=== PATIENT | male | born 1935 | race Caucasian/White ===

== ENCOUNTER 2016-07-26 08:49 | Inpatient (IN) ==
--- NOTE | 2016-07-26 09:35 | Emergency Department Note ---
SOB HPI - General Chief Complaint: Shortness of Breath/Dyspnea Stated Complaint: Shortness of breath Time Seen by Provider: 07/26/16 09:22 Source: patient Mode of arrival: wheelchair Limitations: no limitations - History of Present Illness Patient states even short of breath since yesterday morning, mostly exertional dyspnea, but his states she's also been short of breath at rest. The. When he arrived here, his O2 sats were 88%, he is 100% paced. Denies any chest pain, denies any abdominal pain. He said no nausea, vomiting, diarrhea. No fevers, chills, a slight cough but nonproductive, no ankle swelling. Reported, he does have a history of CABG 10 years ago, 5 vessel bypass. MD Complaint: shortness of breath - Related Data Home Medications Medication Instructions Recorded Confirmed Ascorbic Acid [Vitamin C] 1,000 mg PO DAILY 07/26/16 07/26/16 Aspirin [Adult Low Dose Aspirin EC] 81 mg PO DAILY 07/26/16 07/26/16 Atorvastatin [Lipitor] 40 mg PO HS 07/26/16 07/26/16 Cholecalciferol (Vitamin D3) 1,000 unit PO DAILY 07/26/16 07/26/16 [Vitamin D] EPINEPHrine [Epipen] 0.3 mg IJ PRN PRN 07/26/16 07/26/16 Insulin Glargine,Hum.rec.anlog 30 unit SQ HS 07/26/16 07/26/16 [Lantus Solostar] Multivitamin [Multivitamins] 2 tab PO DAILY 07/26/16 07/26/16 Nitroglycerin [Nitrostat] 0.4 mg SL Q5M PRN 07/26/16 07/26/16 Potassium Gluconate [Potassium] 99 mg PO DAILY 07/26/16 07/26/16 Timolol Maleate 5 mg PO BID 07/26/16 07/26/16 metFORMIN [Glucophage] 1,000 mg PO BIDCC 07/26/16 07/26/16 Allergies Allergy/AdvReac Type Severity Reaction Status Date / Time Sulfa (Sulfonamide Allergy Hives Verified 07/26/16 08:54 Antibiotics) Review of Systems All systems ED: reviewed and negative except as stated. Past Medical History - Past Medical History Source: nursing notes reviewed Medical history: Reports: coronary artery disease, hypertension Surgical history ED: Reports: coronary bypass (CABG) Psychiatric history: Reports: no psych history Family history: Reports: no significant family history - Social History smoking status: Former smoker Alcohol use: Reports: Rarely Drug use: Reports: none Physical Exam 81-year-old male in no immediate distress, respiratory rate slightly increased 20-24. His heart rate is 62 and paced, head, neck exam atraumatic cranium. TMs are normal. His pupils equal and reactive. Neck is supple without JVD. Chest was clear breath sounds, but basilar crackles. Heart regular rhythm and rate. No significant murmurs. Abdomen is generally soft and nontender without masses. Back without CVA pain and skin and extremities otherwise unremarkable. Ankles without edema. Is moving all fours appropriately. He has good distal pulses in all fours. - General Limitations: no limitations General appearance: alert, in no apparent distress - Head Head exam: atraumatic, normocephalic - Eye Eye exam: Present: normal appearance Course Vital Signs Temperature 98.4 F 07/26/16 08:49 Pulse Rate 73 07/26/16 08:49 Respiratory Rate 18 07/26/16 08:49 Blood Pressure 193/88 07/26/16 08:49 Pulse Oximetry (%) 88 L 07/26/16 08:49 Temperature 98.4 F 07/26/16 08:49 Pulse Rate 60 07/26/16 12:31 Respiratory Rate 26 H 07/26/16 12:31 Blood Pressure 185/82 07/26/16 12:31 Pulse Oximetry (%) 100 07/26/16 12:31 Shortness of Breath/Dyspnea - [facility] Narrative Medical decision making narrative: Laboratory studies reviewed, chest x-ray with bilateral pulmonary infiltrates, borderline hypoxia, infiltrates, not suggestive of pneumonia. Final impression is CHF, history of coronary disease and CABG. Plan is admission for CHF treatment. - Lab Data Result diagrams: 07/26/16 09:41 07/26/16 09:40 Lab Results 07/26/16 07/26/16 07/26/16 Range/Units 09:40 09:40 09:40 WBC (4.5-11.0) K/mcL RBC (4.50-5.90) M/mcL Hgb (13.5-16.5) g/dL Hct (41.0-55.0) % MCV (80.0-100.0) fL MCH (26.0-34.0) pg MCHC (31.0-36.0) g/dL RDW (11.5-14.5) % Plt Count (140-440) K/mcL MPV (7.4-10.4) fL Gran % (38.0-78.0) % Lymph % (Auto) (15.5-49.0) % Vance % (Auto) (1.0-12.0) % Eos % (Auto) (0.0-7.0) % Baso % (Auto) (0.0-2.0) % Gran # (1.8-8.0) K/mcL Lymph # (1.5-4.8) K/mcL Vance # (0.1-0.9) K/mcL Eos # (0.0-0.7) K/mcL Baso # (0.0-0.3) K/mcL Sodium 142 (133-145) mmol/L Potassium 4.8 (3.3-5.1) mmol/L Chloride 107 (96-108) mmol/L Carbon Dioxide 20 L (22-30) mmol/L Anion Gap 15.0 (8-16) BUN 38 H (8-23) mg/dl Creatinine 2.1 H (0.7-1.2) mg/dl GFR Calculation 28 Glucose 177 H (70-105) mg/dL Calcium 9.0 (8.6-10.4) mg/dl Total Bilirubin 0.8 (0.0-1.0) mg/dL AST 27 (0-37) U/l ALT 35 (0-40) U/l Alkaline Phosphatase 63 (39-117) U/L Troponin T < 0.01 (0-0.03) ng/ml C-Reactive Protein 1.2 H (0.0-0.8) mg/dl NT-Pro-B Natriuret Pep 10147.0 H (0-450) pg/ml Total Protein 7.1 (5.9-8.4) gm/dL Albumin 4.0 (3.2-5.2) gm/dL Globulin 3.1 (2.2-3.7) gm/dL Albumin/Globulin Ratio 1.3 (1.0-2.3) 07/26/16 Range/Units 09:41 WBC 9.2 (4.5-11.0) K/mcL RBC 3.36 L (4.50-5.90) M/mcL Hgb 10.5 L (13.5-16.5) g/dL Hct 31.6 L (41.0-55.0) % MCV 94.2 (80.0-100.0) fL MCH 31.2 (26.0-34.0) pg MCHC 33.1 (31.0-36.0) g/dL RDW 14.1 (11.5-14.5) % Plt Count 160 (140-440) K/mcL MPV 8.6 (7.4-10.4) fL Gran % 70.1 (38.0-78.0) % Lymph % (Auto) 18.4 (15.5-49.0) % Vance % (Auto) 8.8 (1.0-12.0) % Eos % (Auto) 2.3 (0.0-7.0) % Baso % (Auto) 0.4 (0.0-2.0) % Gran # 6.4 (1.8-8.0) K/mcL Lymph # 1.7 (1.5-4.8) K/mcL Vance # 0.8 (0.1-0.9) K/mcL Eos # 0.2 (0.0-0.7) K/mcL Baso # 0 (0.0-0.3) K/mcL Sodium (133-145) mmol/L Potassium (3.3-5.1) mmol/L Chloride (96-108) mmol/L Carbon Dioxide (22-30) mmol/L Anion Gap (8-16) BUN (8-23) mg/dl Creatinine (0.7-1.2) mg/dl GFR Calculation Glucose (70-105) mg/dL Calcium (8.6-10.4) mg/dl Total Bilirubin (0.0-1.0) mg/dL AST (0-37) U/l ALT (0-40) U/l Alkaline Phosphatase (39-117) U/L Troponin T (0-0.03) ng/ml C-Reactive Protein (0.0-0.8) mg/dl NT-Pro-B Natriuret Pep (0-450) pg/ml Total Protein (5.9-8.4) gm/dL Albumin (3.2-5.2) gm/dL Globulin (2.2-3.7) gm/dL Albumin/Globulin Ratio (1.0-2.3) Disposition Disposition: Xfer As Inpt ([facility]) Referrals: Christopher Rich MD [Primary Care Provider] -
[2016-07-26] MEDS ORDERED: NITROGLYCERIN 1 GM OINT.TOP TD ONE (09:39)
[2016-07-26 09:54] LABS: Basophils # (Auto) 0 K/mcL (0.0-0.3); Basophils % (Auto) 0.4 % (0.0-2.0); Eosinophils # (Auto) 0.2 K/mcL (0.0-0.7); Eosinophils % (Auto) 2.3 % (0.0-7.0); Granulocytes % (Auto) 70.1 % (38.0-78.0); Lymphocytes # (Auto) 1.7 K/mcL (1.5-4.8); Lymphocytes % (Auto) 18.4 % (15.5-49.0); Mean Cell Volume 94.2 fL (80.0-100.0); Mean Corpuscular HGB Conc 33.1 g/dL (31.0-36.0); Mean Corpuscular Hemoglobin 31.2 pg (26.0-34.0); Monocytes # (Auto) 0.8 K/mcL (0.1-0.9); Monocytes % (Auto) 8.8 % (1.0-12.0); Platelet Count 160 K/mcL (140-440); RBC 3.36 M/mcL (4.50-5.90); Red Cell Distribution Width 14.1 % (11.5-14.5)
--- NOTE | 2016-07-26 10:07 | XRay Report ---
HISTORY: Reason for Exam:dyspnea FINDINGS: Patchy alveolar infiltrates are present bilaterally. The greatest involvement on the right side is around the hilum and on the left side it is behind the left heart border. These have become significantly worse since the prior exam done at [facility] on 08/24/07. Right diaphragm is mildly elevated. This is a chronic finding. The heart is mildly enlarged. There are clips in the mediastinum following prior coronary bypass surgery and there is a dual-chamber pacemaker. The pulmonary vasculature appears engorged. The vessels are partially obscured by the pulmonary infiltrates. IMPRESSION: Bilateral pulmonary infiltrates. This may be a combination of congestive heart failure and pneumonia Interpreted and Authenticated by: Clemente Mao 07/26/16
[2016-07-26 10:13] LABS: ALT/SGPT 35 U/l (0-40); Albumin/Globulin Ratio 1.3 (1.0-2.3); Alkaline Phosphatase 63 U/L (39-117); Blood Urea Nitrogen 38 mg/dl (8-23)
[2016-07-26] MEDS ORDERED: FUROSEMIDE 20 MG/2 ML VIAL IV ONE (10:41)
[2016-07-26 11:12] LABS: C-Reactive Protein 1.2 mg/dl (0.0-0.8)
[2016-07-26] MEDS ORDERED: NON FORMULARY MEDICATION 1 DOSE MISCELL (Epinephrine [Epipen] 0.3 MG) IJ PRN (13:18)
--- NOTE | 2016-07-26 13:25 | Internal Med History&Physical ---
Medical - H&P: HPI Patient information: Note initiated : 07/26/16 at 1:20 pm Patient: Theodore Peterson 81 y/o M admitted on for Shortness of breath. History of present illness: Mr. Peterson is a 81 year old male reportedly has a history of coronary disease congestive heart failure, diabetes, and is followed by Dr. Begum in [place]. He and his are moving into a new house yesterday, when he said he noticed he was much more short of breath with exertion than he thought he should be. He also noticed when he walks too far that he felt a little bit shaky. He did have trouble sleeping last night due to shortness of breath. He says his left foot may be a little more swollen than usual, but he has not really noticed any significant swelling. He denies any significant changes in his diet or sudden salt loads, and says they generally eata low-fat low-salt diet. He denies any recent chest pain or palpitations. He presented to the emergency room this morning for further evaluation, and was found to have an elevated BNP and a chest x-ray consistent with congestive heart failure. He otherwise denies recent fever or chills, headaches or dizziness, new eye or ear symptoms, sore throat or cough, chest pain or palpitations abdominal pain, nausea or vomiting, diarrhea or constipation, or dysuria. past medical history: Coronary artery disease, status post stents, and 5 way CABG, approximately 12 years ago History of congestive heart failure History of type 2 diabetes, which he does not really monitor closely anymore Hyperlipidemia History of bradycardia, status post pacemaker Bee sting allergy current medications: timolol maleate 5 mg by mouth twice a day Potassium gluconate OTC99 mg daily Multivitamin 2 tabs daily Metformin 1000 mg twice a day Nitroglycerin 0.4 sublingual when necessary Lantus 30 units subcutaneous daily at bedtime EpiPen 0.3 mg when necessary Vitamin D 1000units daily Lipitor 40 mg daily at bedtime Vitamin C 1000 mg daily Aspirin 81 mg daily allergies: Patient reports he is allergic to sulfa, and also bee stings Family history: His parents are . He believes his father of cancer. He has not seen his family and many many years and is not really aware of their health. he was born in [place] and is one of 10 children. his son after an accident with head trauma. He has a daughter who lives in [place]. Social history: Patient is and lives with his . 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 e previously smoked 2-3 packs of cigarettes per dayfrom the age of about 19 until the age of 34, and then quit. He does not use alcohol or drugs. Medical - H&P: Meds Home Medications Medication Instructions Recorded Confirmed Type Ascorbic Acid [Vitamin C] 1,000 mg PO DAILY 07/26/16 07/26/16 History Aspirin [Adult Low Dose Aspirin EC] 81 mg PO DAILY 07/26/16 07/26/16 History Atorvastatin [Lipitor] 40 mg PO HS 07/26/16 07/26/16 History Cholecalciferol (Vitamin D3) 1,000 unit PO DAILY 07/26/16 07/26/16 History [Vitamin D] EPINEPHrine [Epipen] 0.3 mg IJ PRN PRN 07/26/16 07/26/16 History Insulin Glargine,Hum.rec.anlog 30 unit SQ HS 07/26/16 07/26/16 History [Lantus Solostar] Multivitamin [Multivitamins] 2 tab PO DAILY 07/26/16 07/26/16 History Nitroglycerin [Nitrostat] 0.4 mg SL Q5M PRN 07/26/16 07/26/16 History Potassium Gluconate [Potassium] 99 mg PO DAILY 07/26/16 07/26/16 History Timolol Maleate 5 mg PO BID 07/26/16 07/26/16 History metFORMIN [Glucophage] 1,000 mg PO BIDCC 07/26/16 07/26/16 History Allergies Allergy/AdvReac Type Severity Reaction Status Date / Time Sulfa (Sulfonamide Allergy Hives Verified 07/26/16 08:54 Antibiotics) Medical - H&P: Exam - Constitutional Vitals: Temp Pulse Resp BP Pulse Ox 98.4 F 60 29 H 183/82 100 07/26/16 08:49 07/26/16 13:14 07/26/16 13:14 07/26/16 13:01 07/26/16 13:14 n exam, he is a well-developed well-nourished elderly man in no acute distress. Head: Normocephalic, atraumatic. eyes: PERRLA, EOMI, anicteric. There appears to be a right IOL in place Ears:TMs and canals are clear. pharynx: Teeth are in good repair. posterior pharynx is clear. Neck: Is supple, without obvious JVD, thyromegaly, bruits, lymphadenopathy. cardiac exam:Chest regular rate and rhythm with normal S1 and S2, with soft systolic murmur heard mainly at the apex. Otherwise no rubs or gallops are appreciated. lungs: He has diffuse fine crackles about two thirds up over the posterior lung gutierrez. No wheezing, rhonchi, or accessory muscle use is noted Abdomen: Is soft and nontender without obvious masses. Bowel sounds are active. Extremities:Just a trace pitting edema is noted about the ankles. Posterior tibial and dorsalis pedis pulses are palpable, but seem decreased. Neurologic: Patient is somewhat hard of hearing, but otherwise he is alert and oriented. He seems a bit forgetful about his medical history. Mood and affect appear normal. Cranial nerves and motor exam are otherwise grossly nonfocal. skin exam does not reveal any rashes or other worrisome lesions. Medical - H&P: Reslt - Labs CBC & Chem 7: 07/26/16 09:41 07/26/16 09:40 Labs: Short CBC 07/26/16 Range/Units 09:41 WBC 9.2 (4.5-11.0) K/mcL Hgb 10.5 L (13.5-16.5) g/dL Hct 31.6 L (41.0-55.0) % Plt Count 160 (140-440) K/mcL BMP 07/26/16 09:40 Sodium 142 Potassium 4.8 Chloride 107 Carbon Dioxide 20 L BUN 38 H Creatinine 2.1 H Glucose 177 H Calcium 9.0 Cardiac Enzymes 07/26/16 Range/Units 09:40 Troponin T < 0.01 (0-0.03) ng/ml Liver Function 07/26/16 Range/Units 09:40 Total Bilirubin 0.8 (0.0-1.0) mg/dL AST 27 (0-37) U/l ALT 35 (0-40) U/l Alkaline Phosphatase 63 (39-117) U/L Albumin 4.0 (3.2-5.2) gm/dL anion gap Is elevated at 19 BNP is elevated at 11,676 tSH is minimally elevated at 3.78 chest x-ray: Bilateral patchy alveolar infiltrates, likely CHF with or without pneumonia. CABG clips. Dual-chamber pacemaker. EKG: Appears to be 100% paced at a rate of about 80 march 06, 2014: Echocardiogram: Mild left ventricular enlargement with severe global systolic dysfunction. Mitral regurgitation, moderate. Elevated pulmonary wedge pressure with passive pulmonary hypertension, right atrial enlargement. Ejection fraction estimated at 25%. Medical - H&P: A/P (1) CHF exacerbation Current visit: Yes Status: Acute (2) CAD (coronary artery disease) Current visit: Yes Status: Acute (3) Glaucoma Current visit: Yes Status: Acute (4) Type 2 diabetes mellitus Current visit: Yes Status: Acute - Narrative A/P Narrative: #1. Cardiac. this patient presents with signs and symptoms of CHF. This is likely a CHF exacerbation. -Admit for monitoring of heart rhythm and electrolytes,, echocardiogram, diuresis with IV Lasix. -Sent for cardiology and PCP records,to check on previous treatment. -Verify why patient is not on an KATIE inhibitor, diuretic, beta sahil. -review of low sodium diet. -monitor I's and O's and daily weights. -check follow-up cardiac enzymes. -pacemaker in place for reported history of bradycardia. #2. Infectious disease.- -Pulmonary infiltrates- Possible pneumonia, but patient symptoms are more consistent with CHF. #3. Endocrine. Type 2 diabetes. Hold metformin while diuresing. Continue Lantus. Add Accu- Cheks and sliding scale insulin. -continue statin and aspirin. Verify why he is not on an KATIE inhibitor. I expect this is due to likely chronic kidney disease. #4. Hypertension. Blood pressure is running a bit high. Continue to monitor as we diurese. Continue timolol and aspirin. #5.allergies. Epinephrine pen when necessary. #6. Hyperlipidemia.continue atorvastatin. #7. Renal. This patient likely has chronic kidney disease. The last creatinine we see in the computer is at 1.4, and February 2014. -we have sent for his old records to see if we can verify this. he also appears to have a metabolic acidosis, which may be related to poor renal perfusion as well as metformin related lactic acidosis. Metformin will be held. Monitor kidney function. #8. CODE STATUS: this was discussed with the patient and his . His has his medical power of nurse practitioner hospitalist. He had a hard time answering a question about CODE STATUS, But his reminded him that he never wanted to be on any kind of life support, so they ultimately decided on a no code order. #9. DVT prophylaxis: subcutaneous heparin. #10. Anemia. Guaiac stools. Review old records when available. So far this visit has taken approximately 70 minutes, to review patient's test results, review his case with the ER M.DMiriam, interview and examine the patientand review plan of care with the patient and his , as well as staff, and write orders.
[2016-07-26] MEDS ORDERED: DEXTROSE 50% 50 ML VIAL IV PRN (14:04)
[2016-07-26] MEDS ORDERED: MAGNESIUM HYDROXIDE 30 ML ORAL.SUSP PO PRN (14:04)
[2016-07-26] MEDS ORDERED: ONDANSETRON 4 MG/2 ML VIAL IV PRN (14:04)
[2016-07-26] MEDS ORDERED: ALBUTEROL SULFATE 2.5 MG/3 ML NEBULIZER NEB PRN (14:04)
[2016-07-26] MEDS ORDERED: DOCUSATE SODIUM 100 MG CAPSULE PO PRN (14:04)
[2016-07-26] MEDS ORDERED: ACETAMINOPHEN 325 MG TABLET PO PRN (14:04)
[2016-07-26] MEDS ORDERED: NITROGLYCERIN 0.4 MG TAB.SUBL SL PRN (14:04)
[2016-07-26 14:49] LABS: ALT/SGPT 35 U/l (0-40); Albumin 3.9 gm/dL (3.2-5.2); Albumin/Globulin Ratio 1.2 (1.0-2.3); Alkaline Phosphatase 64 U/L (39-117); Bilirubin,Direct < 0.2 mg/dL (0.0-0.3); Blood Urea Nitrogen 38 mg/dl (8-23); Gamma Glutamyl Transpeptidase 35 U/L (8-61); Magnesium 1.6 mg/dL (1.6-2.5); Uric Acid 7.4 mg/dL (2.5-8.0)
[2016-07-26] MEDS: INSULIN LISPRO 1 UNIT/0.01 ML UNIT SQ SCH ×2 (17:43→20:23)
[2016-07-26] MEDS: METOPROLOL TARTRATE 5 MG/5 ML VIAL IV PRN (19:11)
[2016-07-26] MEDS: INSULIN GLARGINE, HUMAN 1 UNIT/0.01 ML SQ SCH (20:23)
[2016-07-26] MEDS: FUROSEMIDE 20 MG/2 ML VIAL IV SCH (20:24)
[2016-07-26] MEDS: HEPARIN 5,000 UNIT/ML VIAL SQ SCH (20:24)
[2016-07-26] MEDS: ATORVASTATIN 20 MG TABLET PO SCH (20:28)
[2016-07-26] MEDS ORDERED: ATORVASTATIN 20 MG TABLET PO SCH (21:00)
[2016-07-26] MEDS ORDERED: FUROSEMIDE 20 MG/2 ML VIAL IV SCH (21:00)
[2016-07-26] MEDS ORDERED: TIMOLOL PO SCH (21:00)
[2016-07-26] MEDS ORDERED: INSULIN GLARGINE, HUMAN 1 UNIT/0.01 ML SQ SCH (21:00)
[2016-07-27] MEDS: METOPROLOL TARTRATE 5 MG/5 ML VIAL IV PRN ×2 (00:07→05:09)
[2016-07-27 06:05] LABS: Basophils # (Auto) 0 K/mcL (0.0-0.3); Basophils % (Auto) 0.3 % (0.0-2.0); Eosinophils # (Auto) 0.2 K/mcL (0.0-0.7); Eosinophils % (Auto) 2.1 % (0.0-7.0); Granulocytes % (Auto) 72.5 % (38.0-78.0); Lymphocytes # (Auto) 1.5 K/mcL (1.5-4.8); Lymphocytes % (Auto) 16.8 % (15.5-49.0); Mean Cell Volume 92.8 fL (80.0-100.0); Mean Corpuscular HGB Conc 34.1 g/dL (31.0-36.0); Mean Corpuscular Hemoglobin 31.7 pg (26.0-34.0); Monocytes # (Auto) 0.8 K/mcL (0.1-0.9); Monocytes % (Auto) 8.3 % (1.0-12.0); Platelet Count 157 K/mcL (140-440); RBC 3.36 M/mcL (4.50-5.90)
[2016-07-27 06:33] LABS: ALT/SGPT 30 U/l (0-40); Albumin 3.9 gm/dL (3.2-5.2); Albumin/Globulin Ratio 1.2 (1.0-2.3); Alkaline Phosphatase 59 U/L (39-117); Bilirubin,Direct < 0.2 mg/dL (0.0-0.3); Blood Urea Nitrogen 40 mg/dl (8-23); Gamma Glutamyl Transpeptidase 30 U/L (8-61); Magnesium 1.6 mg/dL (1.6-2.5); Uric Acid 8.2 mg/dL (2.5-8.0)
[2016-07-27] MEDS: HEPARIN 5,000 UNIT/ML VIAL SQ SCH ×2 (08:08→21:07)
[2016-07-27] MEDS: FUROSEMIDE 20 MG/2 ML VIAL IV SCH ×2 (08:09→21:08)
[2016-07-27] MEDS: VITAMIN D3 1,000 UNIT TABLET PO SCH (08:09)
[2016-07-27] MEDS: ASPIRIN 81 MG TAB.CHEW PO SCH (08:09)
[2016-07-27] MEDS: INSULIN LISPRO 1 UNIT/0.01 ML UNIT SQ SCH ×4 (08:09→21:07)
--- NOTE | 2016-07-27 08:22 | XRay Report ---
HISTORY: Reason for Exam:chf FINDINGS: Widespread alveolar infiltrates are present in both lungs. The greatest involvement is in the right lower lobe and around the right hilum. Heart is borderline enlarged and has pacemaker. There is mild blunting of the costophrenic sulci bilaterally consistent with pleural effusions. Comparison with the prior exam from 07/26/16 shows no significant change. IMPRESSION: Persistent widespread infiltrates which could be pneumonia, congestive heart failure with pulmonary edema or combination of the two. Interpreted and Authenticated by: Clemente Mao 07/27/16
[2016-07-27] MEDS ORDERED: ASPIRIN 81 MG TAB.CHEW PO SCH (09:00)
[2016-07-27] MEDS ORDERED: VITAMIN D3 1,000 UNIT TABLET PO SCH (09:00)
--- NOTE | 2016-07-27 10:13 | Echocardiogram Report ---
ECHOCARDIOGRAM: 2-D and M-mode echocardiography with cardiac Doppler and color flow imaging were performed with a [employer] Aplio MX. Indication is new heart failure. Overall size of the RA, RV, LA, and aortic root appeared normal. LV cavity size appeared high [id number] enlarged. Wall thickness appeared mildly increased. Septal motion appeared dyssynergic as can be seen following open heart surgery and/or with artificial RV pacing. LV systolic performance otherwise appeared [id number] depressed. Estimated ejection fraction is 45-50%. There was no evidence for mural thrombi. The aortic valve appeared probably trileaflet. Moderate leaflet calcification was present. Valve opening appeared adequate and maximal instantaneous aortic outflow systolic velocity was high normal at 1.7 m/sec. Aortic regurgitation, probably mild (1+), was demonstrated. The mitral and tricuspid valves appeared unremarkable. Doppler interrogation of LV inflow disclosed a likely pseudonormalized pattern. Mitral regurgitation, probably mild (1+), was noted. The pulmonic valve displayed the so-called " configuration as can be seen with pulmonary hypertension. Pulmonary artery acceleration time appeared shortened. There was no evidence for pulmonic stenosis. Pulmonic regurgitation, probably mild (1+), and tricuspid regurgitation, probably moderately severe (3+), were noted. No intracardiac shunting was appreciated. Pacemaker leads were seen within the right heart chambers. There was no evidence for pericardial effusion. The IVC was dilated and did not vary with the respiratory cycle indicating raised CVP. Calculated estimate of PA systolic pressure is severely elevated at 85 mmHg. Probable artificial AV sequential pacemaker rhythm, rate 64, was present. CONCLUSION: Moderate aortic leaflet calcification with adequate valve opening and aortic regurgitation, probably mild (1+). Mild concentric LVH with septal dyssynergy and overall ijfhqatmeq-rt-ffislw depressed systolic performance. Mitral regurgitation, probably mild (1+). Severe and possibly disproportionate pulmonary hypertension/raised CVP. (See accompanying M-mode and Doppler reports for quantitation.) ECHOCARDIOGRAPHY M-MODE CALCULATIONS: HT: 65'' WT: 170 BSA: 1.85 m2 NORMALS AORTA: AORTIC ROOT 3.4 2.0-3.7 cm LEFT ATRIUM 3.5 1.9-4.0 cm MITRAL VALVE: EXCURSION 2.0 1.9-2.7 cm EPSS 0.6 <0.5 cm LT VENTRICLE: LVID (ED) 5.2 3.5-5.7 cm LVID (ES) 3.2 SEPTAL THICKNESS 1.2 0.6-1.1 cm SEPTAL EXCURSION 0.7 0.3-0.8 cm LVPW THICKNESS 1.2 0.6-1.1 cm LVPW EXCURSION 0.8 0.9-1.4 cm MINOR AXIS FS 38 25%-40% RT VENTRICLE: RVID (ED) 1.3 0.9-2.6 cm(up to 3cm if LLD) QUALITATIVE DOPPLER FLOW STUDIES MITRAL VALVE MR, probably mild (1+). AORTIC VALVE AR, probably mild (1+). TRICUSPID VALVE TR, probably moderately severe (3+). PULMONIC VALVE AL, probably mild (1+). QUANTITATIVE DOPPLER FLOW STUDIES SAMPLE SITES VELOCITIES PEAK PRESSURE VALVE AREA and/or VALVE WINDOW (PEAK,M/SEC) DROP (GRADIENT) PRESSURE HALF-TIME MV (Diastole) 1.1 (E) 1.0 (A) MV (Systole) 6.0 AO (Diastole) 4.5 355 msec AO (Systole) 1.7 TV (Systole) 4.0 PV (Systole) 0.65 PV (Diastole) 2.5 EDYG:basilio Job ID: [id number] Doc ID: [id number] Samson Reese MD
--- NOTE | 2016-07-27 10:49 | Internal Med Progress Note ---
Medical - PN: Subj Patient information: Note initiated : 07/27/16 at 10:49 am Patient: Theodore Peterson 81 y/o M admitted on 07/26/16 for SOB/CHF Exacerbation. Interval history: July 26, 2016: History of present illness: Mr. Peterson is a 81 year old male reportedly has a history of coronary disease congestive heart failure, diabetes, and is followed by Dr. Begum in [place]. He and his were moving into a new house yesterday, when he said he noticed he was much more short of breath with exertion than he thought he should be. He also noticed when he walks too far that he felt a little bit shaky. He did have trouble sleeping last night due to shortness of breath. He says his left foot may be a little more swollen than usual, but he has not really noticed any significant swelling. He denies any significant changes in his diet or sudden salt loads, and says they generally eat a low-fat low-salt diet. He denies any recent chest pain or palpitations. He presented to the emergency room this morning for further evaluation, and was found to have an elevated BNP and a chest x-ray consistent with congestive heart failure. He otherwise denies recent fever or chills, headaches or dizziness, new eye or ear symptoms, sore throat or cough, chest pain or palpitations abdominal pain, nausea or vomiting, diarrhea or constipation, or dysuria. July 27: The patient diuresed about 2 L of fluid overnight. He had a restless night due to urinary frequency. He does feel quite a bit less short of breath today than yesterday. He still has mild dyspnea with exertion. he otherwise denies subjective fever or chills, sore throat or cough, chest pain or palpitations, abdominal pain, nausea or vomiting, diarrhea or constipation, dysuria. Review of cardiology records from Dr. Begum shows history of coronary disease, ischemic cardiomyopathy complete heart block, mild aortic stenosis. they report that he has had urticaria in the past related to sulfa and sulfa-based diuretics. there is no mention of CHF or CKD. - Constitutional Vitals: Vital Signs Temp Pulse Resp BP Pulse Ox 97.7 F 60 16 166/73 95 07/26/16 13:44 07/27/16 06:13 07/26/16 13:44 07/27/16 05:07/27/16 07:44 Period Temp Pulse Resp BP Sys/Sahni Pulse Ox Last 24 Hr 59-68 155-184/62-87 95-100 Intake and Output 07/26/16 07/27/16 07/27/16 21:59 05:59 13:59 Intake Total 200 / 200 Output Total 454 / 454 775 / 775 Balance -254 / -254 -775 / -775 Weight 157 lb Intake & Output: Intake & Output 07/26/16 07/27/16 07/27/16 21:59 05:59 13:59 Intake Total 200 / 200 Output Total 454 / 454 775 / 775 Balance -254 / -254 -775 / -775 Weight 157 lb Intake: Oral 200 / 200 Output: Void Amount 450 / 450 775 / 775 # of times incontinent of 4 / 4 urine Other: Meal Dinner Percent of Meal Consumed 100% # Voids 2 3 On exam, he is sitting up in a chair,and just finished breakfast. He is in no acute distress. neck is supple without obvious JVD. Cardiac exam shows regular rate and rhythm. satellite project site monitor shows a paced rhythm. Lungs: Have crackles at the bases, but otherwise are clear. no rhonchi or wheezes are noted. abdomen is soft and nontender. Extremities: Show no edema. Neurologic exam: Is grossly nonfocal Medical - PN: Obj Da - Labs CBC & Chem 7: 07/27/16 03:58 07/27/16 03:58 Labs: Abnormal Lab Results 07/27/16 07/27/16 03:58 03:58 RBC 3.36 L Hgb 10.6 L Hct 31.1 L BUN 40 H Creatinine 2.1 H Glucose 186 H Uric Acid 8.2 H Lactate Dehydrogenase 252 H july 27:. Blood pressures are ranging from 166-173/62-73. O2 saturation has been 95-99% on 2 L intake and output shows -1979 mL chest x-ray shows persistent widespread infiltrates pneumonia versus CHF. Probable bilateral small pleural effusions. No significant change from July 26. echocardiogram shows mild concentric LVH with septal dyssynergy and mildly depressed systolic performance, with LVEF of 45-50%. mild aortic regurgitation. Mild mitral regurgitation. Severe pulmonary hypertension with elevated CVP estimated PA systolic pressure of 85 mmHg moderately severe tricuspid regurgitation. July 26: anion gap Is elevated at 19 BNP is elevated at 11,676 troponin is normal 2. tSH is minimally elevated at 3.78 chest x-ray: Bilateral patchy alveolar infiltrates, likely CHF with or without pneumonia. CABG clips. Dual-chamber pacemaker. EKG: Appears to be 100% paced at a rate of about 80 march 06, 2014: Echocardiogram: Mild left ventricular enlargement with severe global systolic dysfunction. Mitral regurgitation, moderate. Elevated pulmonary wedge pressure with passive pulmonary hypertension, right atrial enlargement. Ejection fraction estimated at 25%. Meds: Medications Acetaminophen (Tylenol) 650 mg PO Q6HP PRN PRN Reason: PAIN/FEVER > 101 Albuterol Sulfate (Ventolin) 2.5 mg NEB Q4HRT PRN PRN Reason: Shortness Of Breath Or Wheezing Aspirin (Aspirin) 81 mg PO DAILY [facility] Last Admin: 07/27/16 08:09 Dose: 81 mg Atorvastatin Calcium (Lipitor) 40 mg PO HS [facility] Last Admin: 07/26/16 20:28 Dose: 40 mg Dextrose (Dextrose 50%) 0 ml IV UD PRN PRN Reason: Hypoglycemia Diagnostic Test (Pha) (Accu-Chek) 1 each FS ACHS [facility] Last Admin: 07/27/16 08:09 Dose: 1 each Docusate Sodium (Colace) 100 mg PO BIDP PRN PRN Reason: Constipation Furosemide (Lasix) 20 mg IV Q12 [facility] Last Admin: 07/27/16 08:09 Dose: 20 mg Heparin Sodium (Porcine) (Heparin) 5,000 unit SQ Q12 [facility] Last Admin: 07/27/16 08:08 Dose: 5,000 unit Insulin Glargine (Lantus) 30 unit SQ [facility] Last Admin: 07/26/16 20:23 Dose: 30 unit Insulin Human Lispro (Humalog) 0 unit SQ ACHS [facility] PRN Reason: Protocol Last Admin: 07/27/16 08:09 Dose: Not Given Magnesium Hydroxide (Milk Of Magnesia) 30 ml PO DAILYP PRN PRN Reason: Constipation Metoprolol Tartrate (Lopressor) 5 mg IV Q4HP PRN PRN Reason: Blood Pressure - High Last Admin: 07/27/16 05:09 Dose: 5 mg Nitroglycerin (Nitrostat) 0.4 mg SL Q5M PRN PRN Reason: Chest Pain Ondansetron HCl (Zofran) 4 mg IV Q4HP PRN PRN Reason: Nausea And Vomiting Timolol Maleate 5 Mg (Tablet) 1 dose PO BID [facility] Last Admin: 07/27/16 08:10 Dose: 1 dose Vitamin D (Vitamin D3) 1,000 unit PO DAILY [facility] Last Admin: 07/27/16 08:09 Dose: 1,000 unit Medical - PN: A/P - Time Spent With Patient Total time spent is greater than 50% in coordination of care (as documented) at patient's floor/unit and/or counseling patient: Greater than 35 minutes (1) CHF exacerbation Status: Acute Current Visit: Yes (2) CAD (coronary artery disease) Status: Chronic Current Visit: Yes (3) Type 2 diabetes mellitus Status: Chronic Current Visit: Yes (4) Complete heart block Status: Chronic Current Visit: Yes (5) Pacemaker Status: Chronic Current Visit: Yes (6) HTN (hypertension) Status: Chronic Current Visit: Yes (7) Hyperlipidemia Status: Chronic Current Visit: Yes (8) Aortic stenosis, mild Status: Chronic Current Visit: Yes (9) Cardiomyopathy, ischemic Status: Chronic Current Visit: Yes (10) S/P CABG x 3 Status: Chronic Current Visit: Yes (11) S/P right coronary artery (RCA) stent placement Status: Chronic Current Visit: Yes (12) History of tobacco abuse Status: Resolved Current Visit: Yes - Narrative A/P Narrative: #1. Cardiac. this patient presents with signs and symptoms of CHF. This is likely a CHF exacerbation. -he is diuresing well, and symptoms are improving. I doubt that he is yet at baseline. -Records from Dr. Begum from [facility], are reviewed today. there is no reported historyof CHF so this may be a new presentation. ejection fraction is only mildly depressed. Certainly there would be concern for recurrent silent ischemia, causing decline. Also, renal function is declining, which may either be secondary to, or the cause of, worsening cardiac output. -Patient will need follow-up with nephrology for further evaluation. -we will continue with Lasix, to see if he can tolerate this,despite reported sulfa allergy. HCTZ would likely be ineffective given hiskidney function. He may also not toleratespironolactone given kidney function. -Ideally, we would start an KATEI inhibitor, but this should probably be reviewed with nephrology first. I would like to try changing his timolol over to coreg to help manage both blood pressure and CHF. -He will obviously also need follow-up with his [employer] [employer], Dr. Begum. -continue diuresis, low sodium dietand diet education. Continue to monitor intake and output, daily weights. -pacemaker in place for reported history of complete heart block. #2. Infectious disease.- -Pulmonary infiltrates- Possible pneumonia, but patient symptoms are more consistent with CHF. so far, he has remained afebrile, with normal white blood cell count. #3. Endocrine. Type 2 diabetes. Hold metformin while diuresing. Continue Lantus. Add Accu- Cheks and sliding scale insulin. -continue statin and aspirin. -Verify why he is not on an KATIE inhibitor. I expect this is due to likely chronic kidney disease. #4. Hypertension. Blood pressure is running a bit high. Continue to monitor as we diurese. Continue aspirin. -Trial of Coreg to replace timolol. #5.allergies. Epinephrine pen when necessarywhen necessary bee stings.. #6. Hyperlipidemia.continue atorvastatin. #7. Renal. This patient likely has chronic kidney disease. The last creatinine we see in the computer is at 1.4, and February 2014. -we have sent for his old records to see if we can verify this. he also appears to have a metabolic acidosis, which may be related to poor renal perfusion as well as metformin related lactic acidosis. Metformin will be held. Monitor kidney function. -obtain records from primary care physician, to see if he has had previous workup. #8. CODE STATUS: this was discussed with the patient and his . His has his medical power of double needle stitcher. He had a hard time answering a question about CODE STATUS, But his reminded him that he never wanted to be on any kind of life support, so they ultimately decided on a no code order. #9. DVT prophylaxis: subcutaneous heparin. #10. Anemia. Guaiac stools. Review old records when available. so far today, this is systemic approximately 35 minutes, to review patient's previous cardiology records with results as above review test results interview and examine the patient, review plan of care with nursing, and write orders. Medical - PN: Qual - Stroke Symptom Onset Unknown: No - VTE Deep Vein Thrombosis/Pulmonary Embolism Present on Admission: No
--- NOTE | 2016-07-27 13:14 | Nephrology Consult Note ---
History of Present Illness - Reason for Consult Patient information: Note initiated : 07/27/16 at 1:05 pm Service Date, if different from initiated Date: [] Patient: Theodore Peterson 81 y/o M admitted on 07/26/16 for SOB/CHF Exacerbation. Chief Complaint: [] Consult date: 07/27/16 chronic renal failure Requesting physician: Lesa Cohn - Chief Complaint SOB - History of Present Illness Mr Peterson is a pleasant white male with PMH of HTN, DM type 2, CAD and other medical issues who is hospitalised with CHF Patient presented to the ED 2 days ago with worsening SOB. He states that he was in a process of moving from [place] to his new house in [place] and while doing so he noticed he had trouble breathing (had difficulty catching breath). His symptoms did not get better and he called his PCP Dr Rich who sent him to ER. The patient also c/o some dizziness when his symptoms started. He does not c/o CP He denies cough, fever No c/o LE edema No urinary complaints does admit to eating at the fast food restaurants more frequently recently as they were moving denies using NSAIDS Patient on evaluation was found to have pul edema with elevated pro bnp and was started on lasix,his symptoms have improved with diuresis He was also noted to have s.creatinine of 2.1-2.9-2.1 over the last 3 days and hence nephrology is consulted Review of Systems All systems PM: reviewed and no additional remarkable complaints except as stated (as in HPI) Past History Past medical history: DM type 2 on metformin and insulin, metformin held because of renal dysfunction HTN: unknown control, does not check BP at home CAD s/p CABG and s/p pacemaker placement dyslipidemia Past surgical history: s/P cabg and pacemaker placement Past family history: not pertinent Past social history: past smoker, quit when he was 34 no h./o drug abuse lives with his in [place], 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 Medications and Allergies Home Medications Medication Instructions Recorded Confirmed Type Ascorbic Acid [Vitamin C] 1,000 mg PO DAILY 07/26/16 07/26/16 History Aspirin [Adult Low Dose Aspirin EC] 81 mg PO DAILY 07/26/16 07/26/16 History Atorvastatin [Lipitor] 40 mg PO HS 07/26/16 07/26/16 History Cholecalciferol (Vitamin D3) 1,000 unit PO DAILY 07/26/16 07/26/16 History [Vitamin D] EPINEPHrine [Epipen] 0.3 mg IJ PRN PRN 07/26/16 07/26/16 History Insulin Glargine,Hum.rec.anlog 30 unit SQ HS 07/26/16 07/26/16 History [Lantus Solostar] Multivitamin [Multivitamins] 2 tab PO DAILY 07/26/16 07/26/16 History Nitroglycerin [Nitrostat] 0.4 mg SL Q5M PRN 07/26/16 07/26/16 History Potassium Gluconate [Potassium] 99 mg PO DAILY 07/26/16 07/26/16 History Timolol Maleate 5 mg PO BID 07/26/16 07/26/16 History metFORMIN [Glucophage] 1,000 mg PO BIDCC 07/26/16 07/26/16 History Allergies Allergy/AdvReac Type Severity Reaction Status Date / Time Sulfa (Sulfonamide Allergy Mild Hives Verified 07/27/16 14:42 Antibiotics) Exam - Vital Signs Vital signs: Temp Pulse Resp BP Pulse Ox 97.7 F 64 16 173/82 99 07/26/16 13:44 07/27/16 11:29 07/26/16 13:44 07/27/16 06:53 07/27/16 11:29 - General Appearance General appearance: appears started age EENT: mucous membranes moist Neck: no JVD Respiratory: clear Cardiology: no rub, no edema, normal S1, normal S2 Gastrointestinal: no tenderness, no guarding Integumentary: no rash, warm and dry Neurologic: alert and oriented x3 Musculoskeletal: no erythema, no cyanosis Psychiatric: mood/affect appropriate Results - Lab Results 07/27/16 03:58 07/27/16 03:58 Most recent lab results Calcium 9.2 mg/dl (8.6-10.4) 07/27/16 03:58 Phosphorus 3.4 mg/dL (2.7-4.5) 07/27/16 03:58 Magnesium 1.6 mg/dL (1.6-2.5) 07/27/16 03:58 Assessment and Plan (1) Renal failure s.creatinine today is 2.1, egfr is 28ml/min per CKD EPI equation s.creatinine 2.0-2.1 this hospital stay unclear baseline renal function will obtain old records from Dr rich's office will obtain renal US and PTH, phos level along with urinary work up which will help decide if this is chronic vs acute depending on this will decide if ok to use ACEI at this time would hold off on spironolactone he will need lasix based on his CHF on discharge but will follow and decide on dose regarding the same Pul edema likely from elevated BP (systolic 199 on presentation) and recent history of high sodium intake echo shows rather improved EF Will also follow renal US if kidneys are asymmetrical will obtain doppler to ensure no PRICILA given presentation Anemia: will obtain work up HTN: on coreg does not check BP at home will follow, unclear why not on KATIE/ARB given h/o low EF Will follow along Thank you for giving me an opportunity to participate in Mr Peterson's medical care , appreciate it Status: Acute
--- NOTE | 2016-07-27 14:59 | Ultrasound Report ---
History: Abnormal renal function Findings: The right kidney measures 6.0 x 6.3 x 10.3 cm the left measures 4.7 x 5.5 x 9.3 cm. In the midportion right kidney there is a 9 x 13 mm nonobstructing stone. There is suggestion of a second stone near the renal pelvis but this is more difficult to verify. The renal cortex of the right side is normal in thickness and echogenicity. There is no mass or cyst in the right kidney. In the left kidney there is a 9 x 11 mm stone in an infundibulum in the middle third. The stones in both kidneys were not present on the prior abdomen CT done with contrast on 03/06/14. In the cortex, laterally in the upper half of the left kidney there is an ill-defined hypoechoic zone which measures approximately 2.7 x 2.9 cm. No corresponding abnormality was seen on the prior CT scan. The remainder of the left kidney is normal and there is no evidence of loss of renal parenchyma on either side. Doppler shows flow of urine through both ureters into the bladder. The bladder had been emptied prior to the exam and therefore is incompletely distended. No lesion is seen within the bladder. Prostate is normal in size. Impression: Bilateral kidney stones which are not causing obstruction. Question mass or complex cyst laterally in the upper half of the left kidney. Additional workup is recommended. If the patient is able to tolerate IV contrast, an upper abdomen CT with IV contrast would be recommended. If contrast is contraindicated, a renal MRI would be useful. Interpreted and Authenticated by: Clemente Mao 07/27/16
[2016-07-27] MEDS: CARVEDILOL 12.5 MG TABLET PO SCH (19:41)
[2016-07-27] MEDS: INSULIN GLARGINE, HUMAN 1 UNIT/0.01 ML SQ SCH (21:07)
[2016-07-27] MEDS: ATORVASTATIN 20 MG TABLET PO SCH (21:08)
[2016-07-28 00:12] LABS: Appearance,Urine CLEAR; Bilirubin,Urine NEG (NEG); Color,Urine STRAW; Glucose,Urine (UA) NEGATIVE (NEG); Leukocyte Esterase,Urine NEG /uL (NEG); Nitrate,Urine NEG (NEG); Protein,Urine NEG (NEG); Urine Blood NEG mg/dL (<0.03); Urobilinogen,Urine NEG (NEG)
[2016-07-28 05:48] LABS: Basophils # (Auto) 0 K/mcL (0.0-0.3); Basophils % (Auto) 0.6 % (0.0-2.0); Eosinophils # (Auto) 0.2 K/mcL (0.0-0.7); Eosinophils % (Auto) 2.3 % (0.0-7.0); Lymphocytes # (Auto) 1.3 K/mcL (1.5-4.8); Lymphocytes % (Auto) 17.3 % (15.5-49.0); Mean Cell Volume 91.4 fL (80.0-100.0); Mean Corpuscular HGB Conc 32.6 g/dL (31.0-36.0); Mean Corpuscular Hemoglobin 29.8 pg (26.0-34.0); Monocytes # (Auto) 0.6 K/mcL (0.1-0.9); Monocytes % (Auto) 7.8 % (1.0-12.0); Platelet Count 167 K/mcL (140-440); RBC 3.39 M/mcL (4.50-5.90); Red Cell Distribution Width 13.2 % (11.5-14.5)
[2016-07-28 06:39] LABS: ALT/SGPT 22 U/l (0-40); Albumin 3.7 gm/dL (3.2-5.2); Albumin/Globulin Ratio 1.2 (1.0-2.3); Alkaline Phosphatase 58 U/L (39-117); Bilirubin,Direct < 0.2 mg/dL (0.0-0.3); Blood Urea Nitrogen 48 mg/dl (8-23); Gamma Glutamyl Transpeptidase 29 U/L (8-61); Magnesium 1.7 mg/dL (1.6-2.5); Uric Acid 7.9 mg/dL (2.5-8.0)
[2016-07-28 06:40] LABS: Iron 35 mcg/dl (61-157); Transferrin % Saturation 13 % (20-50); Unsaturated Iron Binding 234 mcg/dL (112-346)
[2016-07-28 06:45] LABS: Ferritin 96.4 ng/ml (30-400)
[2016-07-28 06:52] LABS: Vitamin B12 650.3 pg/ml (243-894)
[2016-07-28] MEDS: INSULIN LISPRO 1 UNIT/0.01 ML UNIT SQ SCH ×3 (07:49→17:16)
[2016-07-28] MEDS: VITAMIN D3 1,000 UNIT TABLET PO SCH (08:58)
[2016-07-28] MEDS: HEPARIN 5,000 UNIT/ML VIAL SQ SCH (08:58)
[2016-07-28] MEDS: CARVEDILOL 12.5 MG TABLET PO SCH ×2 (08:58→17:17)
[2016-07-28] MEDS: FUROSEMIDE 20 MG/2 ML VIAL IV SCH (08:58)
[2016-07-28] MEDS: ASPIRIN 81 MG TAB.CHEW PO SCH (08:58)
--- NOTE | 2016-07-28 12:00 | Internal Med Progress Note ---
Medical - PN: Subj Patient information: Note initiated : 07/28/16 at 12:00 pm Service Date, if different from initiated Date: [] Patient: Theodore Peterson 81 y/o M admitted on 07/26/16 for SOB/CHF Exacerbation. Chief Complaint: [] - Constitutional Vitals: Vital Signs Temp Pulse Resp BP Pulse Ox 97.0 F 60 20 155/67 93 07/28/16 07:54 07/27/16 16:27 07/28/16 07:54 07/28/16 07:55 07/28/16 07:55 Period Temp Pulse Resp BP Sys/Sahni Pulse Ox Last 24 Hr 97.0 F-98.6 F 60-62 18-20 105-161/49-67 84-100 Intake and Output 07/27/16 07/28/16 07/28/16 21:59 05:59 13:59 Intake Total 640 / 640 640 / 640 Output Total 200 / 200 200 / 200 Balance 640 / 640 -200 / -200 440 / 440 Weight 157 lb 1.6 oz Intake & Output: Intake & Output 07/27/16 07/28/16 07/28/16 21:59 05:59 13:59 Intake Total 640 / 640 640 / 640 Output Total 200 / 200 200 / 200 Balance 640 / 640 -200 / -200 440 / 440 Weight 157 lb 1.6 oz Intake: Oral 640 / 640 640 / 640 Output: Void Amount 200 / 200 200 / 200 Other: Meal Dinner Breakfast Percent of Meal Consumed 100% 100% Feeding Ability Assist with Tray Set Up Assist with Tray Set Up # Voids 1 Medical - PN: Obj Da - Labs CBC & Chem 7: 07/28/16 03:52 07/28/16 03:52 Labs: Abnormal Lab Results 07/28/16 07/28/16 07/28/16 03:52 03:52 03:52 RBC Hgb Hct Lymph # BUN 48 H Creatinine 2.1 H Glucose 123 H Uric Acid Iron 35 L Transferrin % Sat 13 L Lactate Dehydrogenase PTH Intact 79.8 H 07/28/16 07/27/16 07/27/16 03:52 03:58 03:58 RBC 3.39 L 3.36 L Hgb 10.1 L 10.6 L Hct 31.0 L 31.1 L Lymph # 1.3 L BUN 40 H Creatinine 2.1 H Glucose 186 H Uric Acid 8.2 H Iron Transferrin % Sat Lactate Dehydrogenase 252 H PTH Intact Meds: Medications Acetaminophen (Tylenol) 650 mg PO Q6HP PRN PRN Reason: PAIN/FEVER > 101 Albuterol Sulfate (Ventolin) 2.5 mg NEB Q4HRT PRN PRN Reason: Shortness Of Breath Or Wheezing Aspirin (Aspirin) 81 mg PO DAILY [facility] Last Admin: 07/28/16 08:58 Dose: 81 mg Atorvastatin Calcium (Lipitor) 40 mg PO HS [facility] Last Admin: 07/27/16 21:08 Dose: 40 mg Carvedilol (Coreg) 25 mg PO BIDCC [facility] Last Admin: 07/28/16 08:58 Dose: 25 mg Dextrose (Dextrose 50%) 0 ml IV UD PRN PRN Reason: Hypoglycemia Diagnostic Test (Pha) (Accu-Chek) 1 each FS ACHS [facility] Last Admin: 07/28/16 07:31 Dose: 1 each Docusate Sodium (Colace) 100 mg PO BIDP PRN PRN Reason: Constipation Furosemide (Lasix) 20 mg IV Q12 [facility] Last Admin: 07/28/16 08:58 Dose: 20 mg Heparin Sodium (Porcine) (Heparin) 5,000 unit SQ Q12 [facility] Last Admin: 07/28/16 08:58 Dose: 5,000 unit Insulin Glargine (Lantus) 30 unit SQ [facility] Last Admin: 07/27/16 21:07 Dose: 30 unit Insulin Human Lispro (Humalog) 0 unit SQ [facility] PRN Reason: Protocol Last Admin: 07/28/16 07:49 Dose: 1 unit Magnesium Hydroxide (Milk Of Magnesia) 30 ml PO DAILYP PRN PRN Reason: Constipation Metoprolol Tartrate (Lopressor) 5 mg IV Q4HP PRN PRN Reason: Blood Pressure - High Last Admin: 07/27/16 05:09 Dose: 5 mg Nitroglycerin (Nitrostat) 0.4 mg SL Q5M PRN PRN Reason: Chest Pain Ondansetron HCl (Zofran) 4 mg IV Q4HP PRN PRN Reason: Nausea And Vomiting Vitamin D (Vitamin D3) 1,000 unit PO DAILY [facility] Last Admin: 07/28/16 08:58 Dose: 1,000 unit Medical - PN: A/P - Time Spent With Patient Total time spent is greater than 50% in coordination of care (as documented) at patient's floor/unit and/or counseling patient: (1) CHF exacerbation Status: Acute Current Visit: Yes (2) CAD (coronary artery disease) Status: Chronic Current Visit: Yes (3) Type 2 diabetes mellitus Status: Chronic Current Visit: Yes (4) Complete heart block Status: Chronic Current Visit: Yes (5) Pacemaker Status: Chronic Current Visit: Yes (6) HTN (hypertension) Status: Chronic Current Visit: Yes (7) Hyperlipidemia Status: Chronic Current Visit: Yes (8) Aortic stenosis, mild Status: Chronic Current Visit: Yes (9) Cardiomyopathy, ischemic Status: Chronic Current Visit: Yes (10) S/P CABG x 3 Status: Chronic Current Visit: Yes (11) S/P right coronary artery (RCA) stent placement Status: Chronic Current Visit: Yes (12) History of tobacco abuse Status: Resolved Current Visit: Yes Medical - PN: Qual - Stroke Symptom Onset Unknown: No - VTE Deep Vein Thrombosis/Pulmonary Embolism Present on Admission: No
--- NOTE | 2016-07-28 12:49 | Nephrology Progress Note ---
Subjective Patient information: Note initiated : 07/28/16 at 12:46 pm Service Date, if different from initiated Date: [] Patient: Theodore Peterson 81 y/o M admitted on 07/26/16 for SOB/CHF Exacerbation. Chief Complaint: [] Principal diagnosis: CHF Interval history: No overnight events patient denies worsening SOB, CP, dizziness No edema did physical therapy with no issues No GI symptoms Pertinent ROS: ABOVE Objective - Vital Signs Vital signs: Vital Signs Temp Pulse Pulse Resp BP BP Pulse Ox 07/28/16 12:00 97.9 F 67 18 145/62 95 07/28/16 07:55 155/67 93 07/28/16 07:54 97.0 F 20 155/67 95 07/28/16 04:55 84 L 07/28/16 03:32 127/54 94 07/28/16 00:36 95 07/28/16 00:01 123/58 97 07/27/16 23:46 105/50 95 07/27/16 23:39 98.2 F 20 105/50 95 07/27/16 23:38 95 07/27/16 22:09 121/49 94 07/27/16 20:06 96 07/27/16 20:01 161/62 95 07/27/16 20:00 98.6 F 07/27/16 16:27 60 161/59 93 07/27/16 16:00 98.5 F 60 18 161/59 100 Intake and Output 07/27/16 07/28/16 07/28/16 21:59 05:59 13:59 Intake Total 640 / 640 640 / 640 Output Total 200 / 200 200 / 200 Balance 640 / 640 -200 / -200 440 / 440 Intake: Oral 640 / 640 640 / 640 Output: Void Amount 200 / 200 200 / 200 Other: Meal Dinner Breakfast Percent of Meal Consumed 100% 100% Feeding Ability Assist with Tray Set Up Assist with Tray Set Up # Voids 1 Weight 157 lb 1.6 oz Intake & Output: Intake & Output 07/27/16 07/28/16 07/28/16 21:59 05:59 13:59 Intake Total 640 / 640 640 / 640 Output Total 200 / 200 200 / 200 Balance 640 / 640 -200 / -200 440 / 440 Weight 157 lb 1.6 oz Intake: Oral 640 / 640 640 / 640 Output: Void Amount 200 / 200 200 / 200 Other: Meal Dinner Breakfast Percent of Meal Consumed 100% 100% Feeding Ability Assist with Tray Set Up Assist with Tray Set Up # Voids 1 - General Appearance General appearance: appears started age EENT: mucous membranes moist Neck: no JVD Respiratory: clear Cardiology: no rub, no edema, normal S1, normal S2 Gastrointestinal: no tenderness, no guarding Integumentary: no rash, warm and dry Neurologic: no focal deficit, no asterixis, alert and oriented x3 Musculoskeletal: no erythema, no cyanosis Psychiatric: mood/affect appropriate - Lab 07/28/16 03:52 07/28/16 03:52 Most recent lab results Calcium 9.2 mg/dl (8.6-10.4) 07/28/16 03:52 Phosphorus 3.9 mg/dL (2.7-4.5) 07/28/16 03:52 Magnesium 1.7 mg/dL (1.6-2.5) 07/28/16 03:52 Assessment and Plan (1) Renal failure s.creatinine is stable at 2.1 UA with no proteinuria, no hematuria Renal US shows nephrolithiasis and questionable hypoechoic mass BP control much improved abnormal renal function likely has CKD but uncertain if there is an acute component given this would hold off on initiating ACEI, will consider starting this as outpatient after discussing with Dr Rich he will continue with coreg and we should discharge him on lose dose furosemide 20mg pod aily he has anemia with low iron stores so will need oral iron replacement will obtain CT scan without contrast to evaluate the renal mass, cannot get MRI as he has pacemaker advised patient to ensure low sodium diet and adequate hydration when he goes home also will follow in 7-10 days HTN: as above coreg and low dose furosemide will add KATIE if needed but as outpatient Thank you for giving me an opportunity to participate in Mr Peterson';s medical care, appreciate it Status: Acute
--- NOTE | 2016-07-28 14:38 | Cat Scan Report ---
History: Left renal mass seen on ultrasound and patient has chronic renal failure. Patient also has a pacemaker which prohibited him from having an MRI scan. Findings: The patient was imaged without oral or IV contrast from the diaphragm to the SI joints. Sagittal and coronal reformats are created. Evaluation of abdominal organs without contrast is limited. There is moderately severe pulmonary fibrosis in both lower lobes. Pleural thickening is present in the right lower thorax. Pacemaker seen in the right heart. The liver and spleen are normal in size and appear homogeneous. Gallbladder is contracted and packed with numerous gallstones. The bile ducts are nondilated. No abnormality seen within the pancreas or adrenals. There are two or three very small nonobstructing calyceal stones in the left kidney. The largest is in the lower pole and measures 1.5 x 3 mm. There are two calyceal stones in the right kidney. One is in the upper pole and measures 2.5 mm there is another located laterally in the middle portion which is 2 mm. There is no hydronephrosis. The clinically suspected mass seen in the cortex laterally in the midportion left kidney on the ultrasound done on 07/27/16 is not identified on the current unenhanced CT scan. The sensitivity of an unenhanced CT in detecting a small solid renal mass is limited. Unfortunately IV contrast was contraindicated. There is no adenopathy around the kidney or in the retroperitoneum. There is mild stranding of the perirenal fat bilaterally. This has not changed significantly since 03/06/14. The contour of the kidneys has also remained stable since the prior postcontrast CT. There is severe atherosclerotic disease involving the aorta and iliac arteries. There are plaques at the origins of both renal arteries. Impression: Limited study without the use of IV contrast. No solid mass is seen in or adjacent to either kidney. The questionable left renal mass seen on the recent ultrasound could be an artifact or a subtle tumor which is isodense with kidney on nonenhanced imaging. A follow-up ultrasound in 3-4 months would be recommended. Small nonobstructing stones in both kidneys Interpreted and Authenticated by: Clemente Mao 07/28/16
--- NOTE | 2016-07-28 15:09 | Discharge Summary ---
Medical - DS: Prov Patient information: Note initiated : 07/28/16 at 3:03 pm Patient: Theodore Peterson 81 y/o M admitted on 07/26/16 for SOB/CHF Exacerbation. Date of admission: 07/26/16 13:44 Discharge date: 07/28/16 Primary care physician: Christopher Rich Admitting clinician: Lesa Cohn Consults: 07/27/16 11:44 Consult to Physician [CONS] Routine Comment: renal dysfunction, CHF Consulting Provider: Minal Arita Reason For Exam: Physician to Consult Attending physician on discharge: Lesa Cohn Medical - DS: Meds - Discharge Medications Prescriptions: Carvedilol [Coreg] 25 mg PO BIDCC #60 tablet Furosemide [Lasix] 20 mg PO DAILY #30 tablet Repaglinide [Prandin] 0.5 mg PO TIDAC #90 tablet Active and Home Medications: new medication list: Carvedilol 5 mgby mouth twice a day Lasix 20 mg every morning Prandin 0.5 mgwith each meal Lantus 30 units subcutaneous daily at bedtime Vitamin D 1000 units daily Potassium gluconate 99 mg daily Multivitamin 2 daily Sublingual nitroglycerin when necessary EpiPen when necessary Lipitor 40 mg daily at bedtime Vitamin C 1000 mg dailyAspirin 81 mg daily previous Home Medications Ascorbic Acid [Vitamin C] 1,000 mg PO DAILY 07/26/16 [History Confirmed Last Taken Unknown] Aspirin [Adult Low Dose Aspirin EC] 81 mg PO DAILY 07/26/16 [History Confirmed 07/26/16 Last Taken Unknown] Atorvastatin [Lipitor] 40 mg PO HS 07/26/16 [History Confirmed 07/26/16 Last Taken Unknown] Cholecalciferol (Vitamin D3) [Vitamin D] 1,000 unit PO DAILY 07/26/16 [History Confirmed 07/26/16 Last Taken Unknown] EPINEPHrine [Epipen] 0.3 mg IJ PRN PRN 07/26/16 [History Confirmed 07/26/16 Last Taken Unknown] Insulin Glargine,Hum.rec.anlog [Lantus Solostar] 30 unit SQ HS 07/26/16 [ History Confirmed 07/26/16 Last Taken Unknown] Multivitamin [Multivitamins] 2 tab PO DAILY 07/26/16 [History Confirmed Last Taken Unknown] Nitroglycerin [Nitrostat] 0.4 mg SL Q5M PRN 07/26/16 [History Confirmed Last Taken Unknown] Potassium Gluconate [Potassium] 99 mg PO DAILY 07/26/16 [History Confirmed 07/26 Last Taken Unknown] Timolol Maleate 5 mg PO BID 07/26/16 [History Confirmed 07/26/16 Last Taken Unknown] metFORMIN [Glucophage] 1,000 mg PO BIDCC 07/26/16 [History Confirmed 07/26/16 Last Taken Unknown] Medical - DS: Hosp Hospital course: Mr. Peterson is a 81 year old male July 26, 2016: History of present illness: Mr. Peterson is a 81 year old male reportedly has a history of coronary disease congestive heart failure, diabetes, and is followed by Dr. Begum in [place]. He and his were moving into a new house yesterday, when he said he noticed he was much more short of breath with exertion than he thought he should be. He also noticed when he walks too far that he felt a little bit shaky. He did have trouble sleeping last night due to shortness of breath. He says his left foot may be a little more swollen than usual, but he has not really noticed any significant swelling. He denies any significant changes in his diet or sudden salt loads, and says they generally eat a low-fat low-salt diet. He denies any recent chest pain or palpitations. He presented to the emergency room this morning for further evaluation, and was found to have an elevated BNP and a chest x-ray consistent with congestive heart failure. He otherwise denies recent fever or chills, headaches or dizziness, new eye or ear symptoms, sore throat or cough, chest pain or palpitations abdominal pain, nausea or vomiting, diarrhea or constipation, or dysuria. July 27: The patient diuresed about 2 L of fluid overnight. He had a restless night due to urinary frequency. He does feel quite a bit less short of breath today than yesterday. He still has mild dyspnea with exertion. he otherwise denies subjective fever or chills, sore throat or cough, chest pain or palpitations, abdominal pain, nausea or vomiting, diarrhea or constipation, dysuria. Review of cardiology records from Dr. Begum shows history of coronary disease, ischemic cardiomyopathy complete heart block, mild aortic stenosis. they report that he has had urticaria in the past related to sulfa and sulfa-based diuretics. there is no mention of CHF or CKD. July 28:Hospital course: this patient was admitted 2 days ago with significant dyspnea, and was diagnosed with congestive heart failure. It is not entirely clear if he previously had CHF, or if this is a new diagnosis. His last cardiology notes do not indicate a history of CHF. he has diuresed about 2 L of fluid, and seems to be feeling much better. Echocardiogram shows only mildly depressed ejection fraction of 45-50%. He does have significant pulmonary hypertension. Unfortunately, he also presents with what appears to be new or worsening kidney failure. he was unaware of any kidney problems in the past. He was evaluated by Dr. Arita of nephrology. Renal sonogram was done nd showed bilateral kidney stones without obstruction. There was a question of a possible complex cyst versus mass in the left kidney. Radiology recommended CT scan with IV dye, versus MRI. The patient could not have because of his kidney function, and could not have an MRI because of his pacemaker. CT scan done without contrast today is considered a limited study. No solid mass is seen,and they could not correlate a masswith the area that was abnormal on the sonogram There is still possibility of a subtle tumor which is isodense. CT scan was also suggestive ofmoderately severe pulmonary fibrosis of both lower lobes. Gallbladder has numerous gallstones. Small nonobstructing stones are seen in the left kidney and 2 in the right kidney. There is also severe atherosclerotic disease noted involving the aortic and iliac arteries, as well as plaques at the origins of both renal arteries. Today, the patient says he is feeling well. He denies shortness of breath or PND. He feels that his breathing is about back at baseline. He has been up walking with physical therapy without trouble. He otherwise denies subjective fever or chills, headaches or dizziness, chest pain or palpitations, shortness of breath, abdominal pain, nausea or vomiting, diarrhea or constipation, dysuria. On exam, he is sitting up in bed. He is in no acute distress. neck is supple without obvious JVD. Cardiac exam shows regular rate and rhythm. weight checker shows a paced rhythm. Lungs: Have crackles at the bases, but otherwise are clear. no rhonchi or wheezes are noted. abdomen is soft and nontender. Extremities: Show no edema. Neurologic exam: Is grossly nonfocal assessment and plan: #1. Cardiac. this patient presents with signs and symptoms of CHF. This is likely a CHF exacerbation (Acute on chronic). -he is diuresing well, and symptoms are improving. -Records from Dr. Begum from [facility], were reviewed. there is no reported history of CHF so this may be a new presentation. ejection fraction is only mildly depressed. Certainly there would be concern for recurrent silent ischemia, causing decline. Also, renal function is declining, which may either be secondary to, or the cause of, worsening cardiac output. -he appears stable for discharge at this time. We will start him on Lasix 20 mg by mouth daily Timolol was changed to Coreg, 25 mg by mouth twice a day. His blood pressure appears much better controlled on this. His renal function would not likely tolerate an KATIE inhibitor or spironolactone. -Patient will eed to follow up with Dr. Arita of nephrology and about one week regarding renal function decline. 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 Begum or his office, this week.. - low sodium diet and diet education. Continue to monitor daily weights. -pacemaker in place for reported history of complete heart block. #2. Infectious disease.- -Pulmonary infiltrates- Possible pneumonia, but patient symptoms are more consistent with CHF. so far, he has remained afebrile, with normal white blood cell count. #3. Endocrine. Type 2 diabetes. -metformin was discontinued regarding diuresis and kidney function. he should continue with his usual Lantus dose of 30 units a day. I will add an oral Prandin to take with meals, to replace the metformin. -continue statin and aspirin. - he is not on an KATIE inhibitor. I expect this is due to chronic kidney disease. #4. Hypertension. -blood pressure seems better controlled since timolol was changed to Coreg, and Lasix was added. #5.allergies. Epinephrine pen when necessary when necessary bee stings.. #6. Hyperlipidemia.continue atorvastatin. #7. Renal. This patient likely has chronic kidney disease. The last creatinine we see in the computer is at 1.4, and February 2014. he also appeared to have a metabolic acidosis, which may be related to poor renal perfusion as well as metformin related lactic acidosis. Metformin Was discontinued. . Monitor kidney function With nephrology, as well as cardiology. - #8. CODE STATUS: this was discussed with the patient and his . His has his medical power of trademark attorney. He had a hard time answering a question about CODE STATUS, But his reminded him that he never wanted to be on any kind of life support, so they ultimately decided on a no code order. #9. DVT prophylaxis: subcutaneous heparin. #10. Anemia. Guaiac stools. Review old records when available. iron studies indicate iron deficiency. so far today, this is visit took approximately 40 minutes, to review test results,review CT scan with radiology, touch base with the automotive tire testing supervisor, interview and examine the patient, review plan of care with nursing, and write orders. Medical - PN: Qual Discharge diagnosis: cute congestive heart failure, acute renal failure, coronary disease Secondary discharge diagnosis: uncontrolled hypertension, diabetes type 2 coronary artery disease - Time Spent with Patient Total time spent providing and/or coordinating discharge services: Greater than 30 minutes Medical - DS: Exam - Constitutional Vitals: Vital Signs Temp Pulse Pulse Resp BP BP Pulse Ox 07/28/16 12:19 145/62 07/28/16 12:00 97.9 F 67 18 145/62 95 07/28/16 07:55 155/67 93 07/28/16 07:54 97.0 F 20 155/67 95 07/28/16 04:55 84 L 07/28/16 03:32 127/54 94 07/28/16 00:36 95 07/28/16 00:01 123/58 97 07/27/16 23:46 105/50 95 07/27/16 23:39 98.2 F 20 105/50 95 07/27/16 23:38 95 07/27/16 22:09 121/49 94 07/27/16 20:06 96 07/27/16 20:01 161/62 95 07/27/16 20:00 98.6 F 07/27/16 16:27 60 161/59 93 07/27/16 16:00 98.5 F 60 18 161/59 100 Intake and Output 07/28/16 07/28/16 07/28/16 05:59 13:59 21:59 Intake Total 640 / 640 Output Total 200 / 200 200 / 200 Balance -200 / -200 440 / 440 Intake: Oral 640 / 640 Output: Void Amount 200 / 200 200 / 200 Other: Meal Breakfast Percent of Meal Consumed 100% Feeding Ability Assist with Tray Set Up # Voids 1 Medical - DS: Data Labs on day of discharge: Labs from last 24 hours 07/28/16 07/28/16 07/28/16 03:52 03:52 03:52 WBC RBC Hgb Hct MCV MCH MCHC RDW Plt Count MPV Gran % Lymph % (Auto) [place] % (Auto) Eos % (Auto) Baso % (Auto) Gran # Lymph # [place] # Eos # Baso # Sodium 141 Potassium 4.0 Chloride 103 Carbon Dioxide 22 Anion Gap 16.0 BUN 48 H Creatinine 2.1 H GFR Calculation 28 Glucose 123 H Uric Acid 7.9 Calcium 9.2 Phosphorus 3.9 Magnesium 1.7 Iron 35 L TIBC 269 Unsat Iron Binding 234 Transferrin % Sat 13 L Ferritin 96.4 Total Bilirubin 0.5 Direct Bilirubin < 0.2 GGT 29 AST 18 ALT 22 Alkaline Phosphatase 58 Lactate Dehydrogenase 201 Total Protein 6.9 Albumin 3.7 Globulin 3.2 Albumin/Globulin Ratio 1.2 Triglycerides 92 Vitamin B12 650.3 PTH Intact 79.8 H Urine Color Urine Appearance Urine pH Ur Specific [place] Urine Protein Urine Glucose (UA) Urine Ketones Urine Occult Blood Urine Nitrate Urine Bilirubin Urine Urobilinogen Ur Leukocyte Esterase Ur Culture Indicated? 07/28/16 07/27/16 03:52 23:15 WBC 7.8 RBC 3.39 L Hgb 10.1 L Hct 31.0 L MCV 91.4 MCH 29.8 MCHC 32.6 RDW 13.2 Plt Count 167 MPV 8.4 Gran % 72.0 Lymph % (Auto) 17.3 [place] % (Auto) 7.8 Eos % (Auto) 2.3 Baso % (Auto) 0.6 Gran # 5.7 Lymph # 1.3 L [place] # 0.6 Eos # 0.2 Baso # 0 Sodium Potassium Chloride Carbon Dioxide Anion Gap BUN Creatinine GFR Calculation Glucose Uric Acid Calcium Phosphorus Magnesium Iron TIBC Unsat Iron Binding Transferrin % Sat Ferritin Total Bilirubin Direct Bilirubin GGT AST ALT Alkaline Phosphatase Lactate Dehydrogenase Total Protein Albumin Globulin Albumin/Globulin Ratio Triglycerides Vitamin B12 PTH Intact Urine Color Straw Urine Appearance Clear Urine pH 5.0 Ur Specific [place] 1.010 Urine Protein Neg Urine Glucose (UA) Negative Urine Ketones Neg Urine Occult Blood Neg Urine Nitrate Neg Urine Bilirubin Neg Urine Urobilinogen Neg Ur Leukocyte Esterase Neg Ur Culture Indicated? No July 28: -blood pressure is running 145-155 over 60s. - Radiology recommended CT scan with IV dye, versus MRI. The patient could not have dye because of his kidney function, and could not have an MRI because of his pacemaker. CT scan done without contrast today is considered a limited study. No solid mass is seen,and they could not correlate a mass with the area that was abnormal on the sonogram There is still possibility of a subtle tumor which is isodense. CT scan was also suggestive of moderately severe pulmonary fibrosis of both lower lobes. Gallbladder has numerous gallstones. Small nonobstructing stones are seen in the left kidney and 2 in the right kidney. There is also severe atherosclerotic disease noted involving the aortic and iliac arteries, as well as plaques at the origins of both renal arteries. july 27:. Blood pressures are ranging from 166-173/62-73. O2 saturation has been 95-99% on 2 L intake and output shows -1979 mL chest x-ray shows persistent widespread infiltrates pneumonia versus CHF. Probable bilateral small pleural effusions. No significant change from July 26. echocardiogram shows mild concentric LVH with septal dyssynergy and mildly depressed systolic performance, with LVEF of 45-50%. mild aortic regurgitation. Mild mitral regurgitation. Severe pulmonary hypertension with elevated CVP estimated PA systolic pressure of 85 mmHg moderately severe tricuspid regurgitation. July 26: anion gap Is elevated at 19 BNP is elevated at 11,676 troponin is normal 2. tSH is minimally elevated at 3.78 chest x-ray: Bilateral patchy alveolar infiltrates, likely CHF with or without pneumonia. CABG clips. Dual-chamber pacemaker. EKG: Appears to be 100% paced at a rate of about 80 march 06, 2014: Echocardiogram: Mild left ventricular enlargement with severe global systolic dysfunction. Mitral regurgitation, moderate. Elevated pulmonary wedge pressure with passive pulmonary hypertension, right atrial enlargement. Ejection fraction estimated at 25%. Medical - DS: A/P - Patient/Caregiver Discharge Instructions Activity: increase activity as tolerated Diet: Low Sodium (2gm), Renal/Consistent Carbs Additional Instructions: #1. Please stop taking both your timolol and your metformin. #2. Heart failure :Start new prescriptions for Lasix 20 mg once a day, and carvedilol 25 mg twice a day. Please see your heart doctor this coming week, to review new medical regimen and recent test results. Call [facility] for a copy of your discharge summary if they have not received it. #3. Diabetes: Please stop the metformin, due to poor renal function. -We will start you on a new medication, called Prandin, which you will take with each meal You can skip any doses if you skip a meal. -Continue Lantus 30 units a day. #4. You appear to have a low iron anemia. You should probably start taking an iron supplement every day, 325 mg. #5. Your kidney function was abnormal Please follow-up with Dr. Arita in about one week, to keep an eye on this. If you have recurrent shortness of breath,or in any way feel worse, before you can see her regular doctors please come back to the emergency room for further evaluation. -please weigh yourself every morning, after emptying your bladder. Please keep a diary of your weights, and take these to your doctor's appointments, so they can assess whether or not you need more fluid medicine. Prescriptions: Carvedilol [Coreg] 25 mg PO BIDCC #60 tablet Furosemide [Lasix] 20 mg PO DAILY #30 tablet Repaglinide [Prandin] 0.5 mg PO TIDAC #90 tablet - Problem Maintenance (1) CHF exacerbation Status: Acute (2) CAD (coronary artery disease) Status: Chronic Qualifiers: Coronary Disease-Associated Artery/Lesion type: [place] artery [place] vs. transplanted heart: [place] heart Associated angina: without angina Qualified Code(s): I25.10 - Atherosclerotic heart disease of [place] coronary artery without angina pectoris (3) Type 2 diabetes mellitus Status: Chronic Qualifiers: Diabetes mellitus complication status: with kidney complications Diabetes mellitus complication detail: with chronic kidney disease (4) Complete heart block Status: Chronic (5) Pacemaker Status: Chronic (6) HTN (hypertension) Status: Chronic Qualifiers: Hypertension type: essential hypertension Qualified Code(s): I10 - Essential (primary) hypertension (7) Hyperlipidemia Status: Chronic (8) Aortic stenosis, mild Status: Chronic (9) Cardiomyopathy, ischemic Status: Chronic (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 ) Cruz Begum MD [Physician] - 08/03/16 10:45 am (Appointment will be with Vaughn Scott) Christopher Rich MD [Primary Care Provider] - 08/09/16 10:30 am Disposition: Home, Self-Care Prognosis: Fair Rehab Potential: Fair Overall status at discharge: patient is progressing back to baseline Medical - DS: Qual - VTE Deep Vein Thrombosis/Pulmonary Embolism Present on Admission: No
== END 2016-07-28 18:20 | disposition home or self-care (01) | DRG 292 ==
LOC: ED 08:49 → ICU 13:44
PROVIDERS: ADMIT Internal Medicine; ATTEND Internal Medicine

== ENCOUNTER 2017-02-20 16:29 | Inpatient (IN) ==
--- NOTE | 2017-02-20 16:59 | Emergency Department Note ---
SOB HPI - General Chief Complaint: Shortness of Breath/Dyspnea Stated Complaint: sob, coughing up blood Time Seen by Provider: 02/20/17 16:33 Source: patient, family Mode of arrival: wheelchair Limitations: physical limitation - History of Present Illness 81-year-old male presents with shortness of breath that has been worsening in the last month. He states today he has been very short of breath and has tightness in his chest. He also has coughed up about a quarter size and a dime size amount of bright red blood. He has not had hemoptysis before. He does have a history of CHF and interstitial lung disease. He does have oxygen at home but he does not wear it frequently. He is 83% on room air. He states the coughing has gotten worse today. He denies fever chills. He took 2 water pills today to try to get rid of some swelling in his lower extremities. He denies dizziness. No nausea vomiting diarrhea or abdominal pain. He has been in for CHF exacerbation before - Related Data Home Medications Medication Instructions Recorded Confirmed Aspirin [Adult Low Dose Aspirin EC] 81 mg PO DAILY 07/26/16 02/20/17 Atorvastatin [Lipitor] 40 mg PO HS 07/26/16 02/20/17 Cholecalciferol (Vitamin D3) 1,000 unit PO DAILY 07/26/16 02/20/17 [Vitamin D3] EPINEPHrine [Epipen] 0.3 mg IJ PRN PRN 07/26/16 02/20/17 Insulin Glargine,Hum.rec.anlog 30 unit SQ HS 07/26/16 02/20/17 [Lantus Solostar] Nitroglycerin [Nitrostat] 0.4 mg SL Q5M PRN 07/26/16 02/20/17 Potassium Gluconate [Potassium] 99 mg PO DAILY 07/26/16 02/20/17 ascorbic acid (vitamin C) 1,000 mg 1,000 mg PO BID tab 11/30/16 02/20/17 tablet timolol 5 mg tablet 5 mg PO QDAY tab 11/30/16 02/20/17 Previous Rx's Medication Instructions Recorded Accu-Chek 1 each FS ACHS strip 07/28/16 Furosemide [Lasix] 20 mg PO DAILY #30 tab 07/28/16 Repaglinide [Prandin] 0.5 mg PO TIDAC #90 tab 07/28/16 amlodipine 5 mg tablet 5 mg PO QDAY #90 tab 02/05/17 Allergies Allergy/AdvReac Type Severity Reaction Status Date / Time Sulfa (Sulfonamide Allergy Mild Hives Verified 01/31/17 14:15 Antibiotics) Beta-Blockers AdvReac Unknown joyce and Verified 01/31/17 14:15 (Beta-Adrenergic Bloc tachycardia Review of Systems All systems ED: reviewed and negative except as stated. Past Medical History - Past Medical History Medical history: Reports: CHF, coronary artery disease, hypertension, renal disease Psychiatric history: Reports: no psych history Surgical history ED: Reports: coronary bypass (CABG), other (pacemaker) Family history: Reports: non-contributory - Social History smoking status: Former smoker Alcohol use: Reports: Rarely Drug use: Reports: none Physical Exam Limitations: physical limitation General appearance: alert, in no apparent distress Head: atraumatic Eye: Present: normal appearance. Absent: conjunctival injection Neck: Present: normal inspection, full ROM Chest: Present: normal inspection, symmetric chest wall rise Respiratory: Present: other (decreased lung sounds in bases) Cardiovascular: Present: tachycardia, normal heart sounds Abdominal: Present: soft, normal bowel sounds. Absent: tenderness Extremities: Present: pedal edema (plus 1) Neurological: Present: alert, oriented X3 Psychiatric: Present: normal affect, normal mood Skin: Present: warm, dry, intact Course Course Narrative: Talked with Dr. Red. He will admit the patient due to worsening chest x-ray and elevated white count Vital Signs Temperature 97.6 F 02/20/17 16:33 Pulse Rate 104 H 02/20/17 16:33 Respiratory Rate 36 H 02/20/17 16:33 Blood Pressure 198/86 02/20/17 16:33 Pulse Oximetry (%) 83 L 02/20/17 16:33 Temperature 97.6 F 02/20/17 16:33 Pulse Rate 83 02/20/17 18:01 Respiratory Rate 36 H 02/20/17 18:01 Blood Pressure 166/72 02/20/17 18:01 Pulse Oximetry (%) 97 02/20/17 18:01 Shortness of Breath/Dyspnea - Lab Data Lab results reviewed: Yes I reviewed the patient's lab results. Result diagrams: 02/20/17 16:57 02/20/17 16:57 Lab Results 02/20/17 02/20/17 02/20/17 Range/Units 16:57 16:57 16:57 WBC 12.7 H (4.5-11.0) K/mcL RBC 3.91 L (4.50-5.90) M/mcL Hgb 12.5 L (13.5-16.5) g/dL Hct 36.7 L (41.0-55.0) % MCV 94.0 (80.0-100.0) fL MCH 32.1 (26.0-34.0) pg MCHC 34.1 (31.0-36.0) g/dL RDW 13.6 (11.5-14.5) % Plt Count 190 (140-440) K/mcL MPV 8.2 (7.4-10.4) fL Gran % 78.0 (38.0-78.0) % Lymph % (Auto) 13.0 L (15.5-49.0) % [place] % (Auto) 7.9 (1.0-12.0) % Eos % (Auto) 0.8 (0.0-7.0) % Baso % (Auto) 0.3 (0.0-2.0) % Gran # 9.9 H (1.8-8.0) K/mcL Lymph # (Auto) 1.6 (1.5-4.8) K/mcL [place] # (Auto) 1.0 H (0.1-0.9) K/mcL Eos # (Auto) 0.1 (0.0-0.7) K/mcL Baso # (Auto) 0 (0.0-0.3) K/mcL VBG Lactic Acid (0.5-2.2) mmol/L Sodium 137 (133-145) mmol/L Potassium 3.9 (3.3-5.1) mmol/L Chloride 97 (96-108) mmol/L Carbon Dioxide 19 L (22-30) mmol/L Anion Gap 21.0 H (8-16) BUN 32 H (8-23) mg/dl Creatinine 2.0 H (0.7-1.2) mg/dl GFR Calculation 30 Glucose 309 H (70-105) mg/dL Calcium 9.6 (8.6-10.4) mg/dl Total Bilirubin 1.0 (0.0-1.0) mg/dL AST 18 (0-37) U/l ALT 16 (0-40) U/l Alkaline Phosphatase 79 (39-117) U/L Troponin T 0.03 (0-0.03) ng/ml NT-Pro-B Natriuret Pep 4952.0 H (0-450) pg/ml Total Protein 8.1 (5.9-8.4) gm/dL Albumin 4.5 (3.2-5.2) gm/dL Globulin 3.6 (2.2-3.7) gm/dL Albumin/Globulin Ratio 1.3 (1.0-2.3) Procalcitonin (<0.10) ng/mL Urine Color Urine Appearance Urine pH (5.0-9.0) Ur Specific [place] (1.000-1.035) Urine Protein (NEG) mg/dL Urine Glucose (UA) (NEG) mg/dL Urine Ketones (NEG) mg/dL Urine Occult Blood (<0.03) mg/dL Urine Nitrate (NEG) Urine Bilirubin (NEG) mg/dL Urine Urobilinogen (NEG) mg/dL Ur Leukocyte Esterase (NEG) /uL Urine RBC (0-1) /hpf Urine WBC (0-4) /hpf Ur Squamous Epith Cells (0-4) /hpf Urine Bacteria (0) /hpf Urine Mucus (0) /hpf Ur Culture Indicated? 02/20/17 02/20/17 02/20/17 Range/Units 16:57 17:11 17:42 WBC (4.5-11.0) K/mcL RBC (4.50-5.90) M/mcL Hgb (13.5-16.5) g/dL Hct (41.0-55.0) % MCV (80.0-100.0) fL MCH (26.0-34.0) pg MCHC (31.0-36.0) g/dL RDW (11.5-14.5) % Plt Count (140-440) K/mcL MPV (7.4-10.4) fL Gran % (38.0-78.0) % Lymph % (Auto) (15.5-49.0) % [place] % (Auto) (1.0-12.0) % Eos % (Auto) (0.0-7.0) % Baso % (Auto) (0.0-2.0) % Gran # (1.8-8.0) K/mcL Lymph # (Auto) (1.5-4.8) K/mcL [place] # (Auto) (0.1-0.9) K/mcL Eos # (Auto) (0.0-0.7) K/mcL Baso # (Auto) (0.0-0.3) K/mcL VBG Lactic Acid 1.2 (0.5-2.2) mmol/L Sodium (133-145) mmol/L Potassium (3.3-5.1) mmol/L Chloride (96-108) mmol/L Carbon Dioxide (22-30) mmol/L Anion Gap (8-16) BUN (8-23) mg/dl Creatinine (0.7-1.2) mg/dl GFR Calculation Glucose (70-105) mg/dL Calcium (8.6-10.4) mg/dl Total Bilirubin (0.0-1.0) mg/dL AST (0-37) U/l ALT (0-40) U/l Alkaline Phosphatase (39-117) U/L Troponin T (0-0.03) ng/ml NT-Pro-B Natriuret Pep (0-450) pg/ml Total Protein (5.9-8.4) gm/dL Albumin (3.2-5.2) gm/dL Globulin (2.2-3.7) gm/dL Albumin/Globulin Ratio (1.0-2.3) Procalcitonin < 0.10 (<0.10) ng/mL Urine Color Straw Urine Appearance Clear Urine pH 5.0 (5.0-9.0) Ur Specific [place] 1.011 (1.000-1.035) Urine Protein Neg (NEG) mg/dL Urine Glucose (UA) 150 A (NEG) mg/dL Urine Ketones Neg (NEG) mg/dL Urine Occult Blood 0.2 A (<0.03) mg/dL Urine Nitrate Neg (NEG) Urine Bilirubin Neg (NEG) mg/dL Urine Urobilinogen Neg (NEG) mg/dL Ur Leukocyte Esterase Neg (NEG) /uL Urine RBC 2 H (0-1) /hpf Urine WBC < 1 (0-4) /hpf Ur Squamous Epith Cells 0 (0-4) /hpf Urine Bacteria 0 (0) /hpf Urine Mucus Few (0) /hpf Ur Culture Indicated? No - Radiology Data Radiology results reviewed: Yes I reviewed the patient's radiology results. Worsening alveolar infiltrates in both lungs as described above Disposition Pt seen by CLEARING INSPECTOR/PA only: Yes Clinical Impression: Community acquired pneumonia Disposition: Xfer As Inpt ([facility]) Condition: Fair Referrals: Christopher Rich MD [Primary Care Provider] -
[2017-02-20 17:25] LABS: Basophils # (Auto) 0 K/mcL (0.0-0.3); Basophils % (Auto) 0.3 % (0.0-2.0); Eosinophils # (Auto) 0.1 K/mcL (0.0-0.7); Eosinophils % (Auto) 0.8 % (0.0-7.0); Lymphocytes # (Auto) 1.6 K/mcL (1.5-4.8); Mean Corpuscular HGB Conc 34.1 g/dL (31.0-36.0); Mean Corpuscular Hemoglobin 32.1 pg (26.0-34.0); Monocytes % (Auto) 7.9 % (1.0-12.0); Platelet Count 190 K/mcL (140-440); RBC 3.91 M/mcL (4.50-5.90); Red Cell Distribution Width 13.6 % (11.5-14.5)
--- NOTE | 2017-02-20 17:28 | XRay Report ---
HISTORY: Reason for Exam:SOB FINDINGS: Right diaphragm is elevated. There are moderate generalized alveolar opacities throughout both lungs. No lobar consolidation is present and there is also no evidence of pleural effusion. The heart is mildly enlarged. There has been prior coronary bypass surgery. Pacemaker is present in the right heart. Comparison with the prior chest CT done on 10/24/16 shows the patient has underlying pulmonary fibrosis. The alveolar opacities seen on today's study may be acute noninfectious inflammation superimposed upon the underlying pulmonary fibrosis. Pulmonary edema and pneumonia are also in the differential. IMPRESSION: Worsening alveolar infiltrates in both lungs as described above Interpreted and Authenticated by: Clemente Mao 02/20/17
[2017-02-20 17:47] LABS: ALT/SGPT 16 U/l (0-40); Albumin 4.5 gm/dL (3.2-5.2); Albumin/Globulin Ratio 1.3 (1.0-2.3); Alkaline Phosphatase 79 U/L (39-117); Blood Urea Nitrogen 32 mg/dl (8-23)
[2017-02-20] MEDS ORDERED: cefTRIAXone 1 GM VIAL IV ONE (17:55)
[2017-02-20 18:02] LABS: Appearance,Urine CLEAR; Bacteria,Urine 0 /hpf (0); Bilirubin,Urine NEG (NEG); Color,Urine STRAW; Glucose,Urine (UA) 150 mg/dL (NEG); Leukocyte Esterase,Urine NEG /uL (NEG); Mucus,Urine FEW /hpf (0); Nitrate,Urine NEG (NEG); Protein,Urine NEG (NEG); Specific Gravity,Urine 1.011 (1.000-1.035); Urine Blood 0.2 mg/dL (<0.03); Urine RBC 2 /hpf (0-1); Urine Squamous Epithelial Cell 0 /hpf (0-4); Urine WBC < 1 /hpf (0-4); Urobilinogen,Urine NEG (NEG)
[2017-02-20] MEDS ORDERED: DEXTROSE 50% 50 ML VIAL IV PRN (19:04)
[2017-02-20] MEDS ORDERED: DEXTROSE 31 GM ORAL.SUSP PO PRN (19:04)
[2017-02-20] MEDS ORDERED: NITROGLYCERIN 0.4 MG TAB.SUBL SL PRN (19:38)
[2017-02-20] MEDS ORDERED: VANCOMYCIN PER PHARMACY IV SCH (19:38)
[2017-02-20] MEDS ORDERED: NALOXONE HCL 0.4 MG/ML VIAL IV PRN (19:38)
[2017-02-20] MEDS ORDERED: ONDANSETRON 4 MG/2 ML VIAL IV PRN (19:38)
[2017-02-20] MEDS: IPRATROPIUM/ALBUTEROL 3 ML AMPUL.NEB NEB SCH ×2 (19:50→23:30)
--- NOTE | 2017-02-20 20:03 | Internal Med History&Physical ---
Medical - H&P: HPI Patient information: Note initiated : 02/20/17 at 7:58 pm Service Date, if different from initiated Date: [] Patient: Theodore Peterson 81 y/o M admitted on 02/20/17 for sob, coughing up blood. Chief Complaint: [] History of present illness: Mr. Peterson is a 81 year old male with extensive medical history, CAD, s/p CABG, s /p pacemaker, CHF, CKD, DM, bronchiatesis, pulmonary fibrosis, presents to the ER with complaints of cough x 1 day associated with weakness, increased shortness of breath. Cough is yellowish in color, but he has had two episodes of hemoptysis today. The patient is progressively getting worse and therefore decided to come to the ER . He has poor functional status at baseline, last admission 6 months ago in july, for chf/ pna, since then he has not completely recovered. He has been followed up by his call center manager, porter luggage as well as PCP. he has undergone a CT chest which shows diffuse infiltrates/ broncheatasis, / fibrosis in the lungs. Secondary to ASpiration? The patient sleeps 5-6 hrs during the day, is supposed to be on oxygen but does not use if often, he notes he is short of breath even while walking from the bed to the bathroom, he sleeps on his side, and admits to have lower extremity edema, he does not have orthopnea or PND, and not sure if the edema has worsened significantly. The patient apparently was at his near baseline status till yesterday. In the ER he was noted to be hypoxic on arrival, which corrected promptly to oxygen. His labs showed elevated wbc count, his has CKD with creat of 2.0, his glucose is elevated, his CXR shows worsening alveolar infiltrates. The patient was tachepnic and therefore admitted to the hospital for further management, in PCU status. Patient is DNR, ok with bipap He and family explained that that his overall prognosis is poor given poor functional status, and bronchiatesis/ pulm fibrosis. All systems: reviewed and no additional remarkable complaints except as stated ( as per HPI) Medical - H&P: PMH Medical history: Medical History (Last Reviewed 01/31/17 @ 14:58 by Minal Arita MD) CHF exacerbation (Acute) CAD (coronary artery disease) (Chronic) Type 2 diabetes mellitus (Chronic) Complete heart block (Chronic) Pacemaker (Chronic) HTN (hypertension) (Chronic) Hyperlipidemia (Chronic) Aortic stenosis, mild (Chronic) Cardiomyopathy, ischemic (Chronic) History of tobacco abuse (Resolved) Renal failure (Acute) Community acquired pneumonia (Acute) Surgical history: s/p cabg s/p Pacemaker implant Family history: reviewed and not pertinent Medical - H&P: Meds Home Medications Medication Instructions Recorded Confirmed Type Aspirin [Adult Low Dose Aspirin EC] 81 mg PO DAILY 07/26/16 02/20/17 History Atorvastatin [Lipitor] 40 mg PO HS 07/26/16 02/20/17 History Cholecalciferol (Vitamin D3) 1,000 unit PO DAILY 07/26/16 02/20/17 History [Vitamin D3] EPINEPHrine [Epipen] 0.3 mg IJ PRN PRN 07/26/16 02/20/17 History Insulin Glargine,Hum.rec.anlog 30 unit SQ HS 07/26/16 02/20/17 History [Lantus Solostar] Nitroglycerin [Nitrostat] 0.4 mg SL Q5M PRN 07/26/16 02/20/17 History Potassium Gluconate [Potassium] 99 mg PO DAILY 07/26/16 02/20/17 History Accu-Chek 1 each FS ACHS strip 07/28/16 02/20/17 Rx Furosemide [Lasix] 20 mg PO DAILY #30 tab 07/28/16 02/20/17 Rx Repaglinide [Prandin] 0.5 mg PO TIDAC #90 tab 07/28/16 02/20/17 Rx ascorbic acid (vitamin C) 1,000 mg 1,000 mg PO BID tab 11/30/16 02/20/17 History tablet timolol 5 mg tablet 5 mg PO QDAY tab 11/30/16 02/20/17 History amlodipine 5 mg tablet 5 mg PO QDAY #90 tab 02/05/17 02/20/17 Rx Allergies Allergy/AdvReac Type Severity Reaction Status Date / Time Sulfa (Sulfonamide Allergy Mild Hives Verified 01/31/17 14:15 Antibiotics) Beta-Blockers AdvReac Unknown joyce and Verified 01/31/17 14:15 (Beta-Adrenergic Bloc tachycardia Medical - H&P: Exam - Constitutional Vitals: Temp Pulse Resp BP Pulse Ox 97.6 F 81 26 H 174/82 96 02/20/17 16:33 02/20/17 19:55 02/20/17 19:55 02/20/17 19:42 02/20/17 19:50 Exam: GENERAL: The patient is a well-developed, well-nourished in no apparent distress. Is alert and oriented x3. VITAL SIGNS: Reviewed and as noted elsewhere. HEENT: Head is normocephalic and atraumatic. Extraocular muscles are intact. Pupils are equal, round, and reactive to light. Nares appeared normal. Mouth appears any without lesions. Mucous membranes are dry NECK: Normal to inspection, Supple, No lymphadenopathy or thyromegaly. LUNGS: Air entry equal on both sides, jarred bronchial breath sounds with bibasilar crackles , no wheezing, No accessory muscles of respiration, but patient was tachypenic. HEART: Regular rate and rhythm normal, S1 and S2 heard, no Gallop, S3 or Rub Noted, ABDOMEN: Soft, nontender, and nondistended. Positive bowel sounds. No hepatosplenomegaly was noted. EXTREMITIES: No cyanosis, clubbing, rash, jarred lower extremity edema present +++ NEUROLOGIC: Cranial nerves II through XII are grossly intact. Motor and Sensory System Grossly Intact PSYCHIATRIC: Normal affect, Normal Mood. Appropriate Behavior. SKIN: No ulceration or wounds noted, No jaundice, No rash noted. Medical - H&P: Reslt - Labs CBC & Chem 7: 02/20/17 16:57 02/20/17 16:57 Labs: Short CBC 02/20/17 Range/Units 16:57 WBC 12.7 H (4.5-11.0) K/mcL Hgb 12.5 L (13.5-16.5) g/dL Hct 36.7 L (41.0-55.0) % Plt Count 190 (140-440) K/mcL BMP 02/20/17 16:57 Sodium 137 Potassium 3.9 Chloride 97 Carbon Dioxide 19 L BUN 32 H Creatinine 2.0 H Glucose 309 H Calcium 9.6 Cardiac Enzymes 02/20/17 Range/Units 16:57 Troponin T 0.03 (0-0.03) ng/ml Liver Function 02/20/17 Range/Units 16:57 Total Bilirubin 1.0 (0.0-1.0) mg/dL AST 18 (0-37) U/l ALT 16 (0-40) U/l Alkaline Phosphatase 79 (39-117) U/L Albumin 4.5 (3.2-5.2) gm/dL Urine 02/20/17 Range/Units 17:11 Urine Color Straw Urine Appearance Clear Urine pH 5.0 (5.0-9.0) Ur Specific [place] 1.011 (1.000-1.035) Urine Protein Neg (NEG) mg/dL Urine Glucose (UA) 150 A (NEG) mg/dL Medical - H&P: A/P - Narrative A/P Narrative: A/P Pneumonia: Given Pulm fibrosis/ Bronchiectasis, treat as health care associated , sputum cx, bloodcx ordered, will also order fungal panel, and sputum fungal culture, IV vanco and zosyn for now. Bronchiectasis/ Pulm Fibrosis: Etiology? aspiration? given worsening infiltrates , repeat CT chest, get swallow eval / esophagogram CHF: Clinically patient has edema and basilar crackles, his bnp is elevated but not as high as before, will not give IV lasix for now, monitor how he responds to antibiotics, continue oral lasix, Chronic Resp failure: patient is hypoxic but I think his oxygen saturations runs chronicallyh low, oxygen via nasal canula for now, consider bipap if resp staus worsens. CKD : follows with Dr Arita, CKD stable creat is around 2.0 DM uncontrolled glucose. resume lantus, start on sliding scale insulin and monitor glucose, hold oral home meds HTN: bp elevated on oral diuretic which will continue home meds, he is on timolol 5mg tid which I find unusual, CAD, s/p CABG: on statin asa, bb, no cp continue same and monitor Diet cardiac, diabetic DNR code status DVT hep sq and scd Social History - Social History marital status: occupational status: retired - Tobacco smoking status: Former smoker - Alcohol alcohol intake frequency: former alcohol drinker (does not drink anymore.) - Substance use substance use type: does not use
[2017-02-20] MEDS ORDERED: 0.9 % SODIUM CHLORIDE 250 ML IV ONE (20:51)
[2017-02-20] MEDS ORDERED: ATORVASTATIN 40 MG TABLET PO SCH (21:00)
[2017-02-20] MEDS ORDERED: VANCOMYCIN 500 MG VIAL ONE (21:03)
[2017-02-20] MEDS: VANCOMYCIN 1,000 MG in 0.9 % SODIUM CHLORIDE 250 ML IV ONE ×2 (21:04→21:12)
[2017-02-20] MEDS: INSULIN LISPRO 1 UNIT/0.01 ML UNIT SQ SCH (21:10)
[2017-02-20] MEDS: INSULIN GLARGINE, HUMAN 1 UNIT/0.01 ML SQ SCH (21:10)
[2017-02-20] MEDS: FAMOTIDINE/PF 20 MG/2 ML VIAL IV SCH (21:11)
[2017-02-20] MEDS: 0.9 % SODIUM CHLORIDE 10 ML SYRINGE IV SCH (21:11)
[2017-02-20] MEDS: HEPARIN 5,000 UNIT/ML VIAL SQ SCH (21:11)
[2017-02-20] MEDS: PIPERACILLIN SODIUM/TAZOBACTAM 3.375 GM in DEXTROSE 5% IN WATER 50 ML IV SCH (22:43)
[2017-02-21] MEDS: IPRATROPIUM/ALBUTEROL 3 ML AMPUL.NEB NEB SCH ×6 (02:40→23:25)
[2017-02-21 05:28] LABS: Basophils # (Auto) 0 K/mcL (0.0-0.3); Basophils % (Auto) 0.2 % (0.0-2.0); Eosinophils # (Auto) 0.1 K/mcL (0.0-0.7); Eosinophils % (Auto) 1.1 % (0.0-7.0); Granulocytes % (Auto) 73.9 % (38.0-78.0); Lymphocytes # (Auto) 1.5 K/mcL (1.5-4.8); Lymphocytes % (Auto) 15.8 % (15.5-49.0); Mean Cell Volume 93.8 fL (80.0-100.0); Mean Corpuscular HGB Conc 34.3 g/dL (31.0-36.0); Mean Corpuscular Hemoglobin 32.2 pg (26.0-34.0); Monocytes # (Auto) 0.9 K/mcL (0.1-0.9); Platelet Count 161 K/mcL (140-440); RBC 3.36 M/mcL (4.50-5.90)
[2017-02-21 05:53] LABS: ALT/SGPT 13 U/l (0-40); Albumin 3.7 gm/dL (3.2-5.2); Albumin/Globulin Ratio 1.2 (1.0-2.3); Alkaline Phosphatase 61 U/L (39-117); Bilirubin,Direct < 0.2 mg/dL (0.0-0.3); Blood Urea Nitrogen 30 mg/dl (8-23); Gamma Glutamyl Transpeptidase 22 U/L (8-61); Magnesium 1.6 mg/dL (1.6-2.5); Uric Acid 4.7 mg/dL (2.5-8.0)
[2017-02-21] MEDS ORDERED: FUROSEMIDE 40 MG/4 ML VIAL IV ONE (07:18)
[2017-02-21] MEDS: PIPERACILLIN SODIUM/TAZOBACTAM 3.375 GM in DEXTROSE 5% IN WATER 50 ML IV SCH ×3 (08:16→22:28)
[2017-02-21] MEDS: 0.9 % SODIUM CHLORIDE 10 ML SYRINGE IV SCH ×3 (08:21→20:38)
[2017-02-21] MEDS: HEPARIN 5,000 UNIT/ML VIAL SQ SCH ×2 (08:27→20:36)
[2017-02-21] MEDS: ASCORBIC ACID 500 MG TABLET PO SCH ×2 (08:27→20:38)
[2017-02-21] MEDS: POTASSIUM CHLORIDE 10 MEQ TABLET PO SCH (08:27)
[2017-02-21] MEDS: INSULIN LISPRO 1 UNIT/0.01 ML UNIT SQ SCH ×4 (08:28→20:35)
[2017-02-21] MEDS: ASPIRIN 81 MG TAB.CHEW PO SCH (08:28)
[2017-02-21] MEDS: amLODIPine 5 MG TABLET PO SCH (08:28)
--- NOTE | 2017-02-21 08:34 | XRay Report ---
HISTORY: Reason for Exam:pneumonia FINDINGS: Moderate generalized alveolar infiltrates are present throughout both lungs. There has been mild improvement bilaterally since yesterday. The right diaphragm remains mildly elevated. There is no pleural effusion. The heart size is within normal limits and has decreased in size. IMPRESSION: Improving bilateral pulmonary infiltrates Interpreted and Authenticated by: Clemente Mao 02/21/17
[2017-02-21] MEDS ORDERED: NON FORMULARY MEDICATION 1 DOSE MISCELL (Potassium Gluconate [Potassium] 99 MG) PO SCH (09:00)
[2017-02-21] MEDS ORDERED: FUROSEMIDE 20 MG TABLET PO SCH (09:00)
[2017-02-21] MEDS: VITAMIN D3 1,000 UNIT TABLET PO SCH (09:08)
--- NOTE | 2017-02-21 09:15 | Internal Med Progress Note ---
Medical - PN: Subj Patient information: Note initiated : 02/21/17 at 9:12 am Service Date, if different from initiated Date: [] Patient: Theodore Peterson 81 y/o M admitted on 02/20/17 for sob, coughing up blood. Chief Complaint: [] Interval history: Mr. Peterson is a 81 year old male with extensive medical history, CAD, s/p CABG, s /p pacemaker, CHF, CKD, DM, bronchiatesis, pulmonary fibrosis, presents to the ER with complaints of cough x 1 day associated with weakness, increased shortness of breath. Cough is yellowish in color, but he has had two episodes of hemoptysis today. The patient is progressively getting worse and therefore decided to come to the ER . He has poor functional status at baseline, last admission 6 months ago in july, for chf/ pna, since then he has not completely recovered. He has been followed up by his buckle inspector, dog trainer as well as PCP. he has undergone a CT chest which shows diffuse infiltrates/ broncheatasis, / fibrosis in the lungs. Secondary to ASpiration? The patient sleeps 5-6 hrs during the day, is supposed to be on oxygen but does not use if often, he notes he is short of breath even while walking from the bed to the bathroom, he sleeps on his side, and admits to have lower extremity edema, he does not have orthopnea or PND, and not sure if the edema has worsened significantly. The patient apparently was at his near baseline status till yesterday. In the ER he was noted to be hypoxic on arrival, which corrected promptly to oxygen. His labs showed elevated wbc count, his has CKD with creat of 2.0, his glucose is elevated, his CXR shows worsening alveolar infiltrates. The patient was tachepnic and therefore admitted to the hospital for further management, in PCU status. Patient is DNR, ok with bipap He and family explained that that his overall prognosis is poor given poor functional status, and bronchiatesis/ pulm fibrosis. Feb 21 patient seen examined, no acute overnight issues, patient this am feels more short of breath than yesterday, Chest xray shows improving infiltrates, he has some low grade temp, but his wbc count is normalized. he remains on vanco and zosyn Plan was to get swallow eval and CT chest today, but given his worsneing sob, hold off on same. Give one dose of lasix 40 and see how he responds, if needed will place him on bipap Pulmonary consult not available this week. Pertinent ROS: Denies headache, dizziness Denies chest pain, palpitations cough and sob present, sob somewhat worse this AM. Denies abdominal pain, nausea or vomiting. - Constitutional Vitals: Vital Signs Temp Pulse Resp BP Pulse Ox 100.0 F H 87 22 143/64 97 02/21/17 00:01 02/21/17 07:23 02/21/17 07:23 02/21/17 06:01 02/21/17 07:23 Period Temp Pulse Resp BP Sys/Sahni Pulse Ox Last 24 Hr 97.6 F-100.5 F 72-104 22-38 143-198/58-86 83-100 Intake and Output 02/20/17 02/21/17 02/21/17 21:59 05:59 13:59 Intake Total 50 / 50 Output Total 475 / 475 600 / 600 200 / 200 Balance -475 / -475 -550 / -550 -200 / -200 Weight 163 lb 8 oz Intake & Output: Intake & Output 02/20/17 02/21/17 02/21/17 21:59 05:59 13:59 Intake Total 50 / 50 Output Total 475 / 475 600 / 600 200 / 200 Balance -475 / -475 -550 / -550 -200 / -200 Weight 163 lb 8 oz Intake: IV 50 / 50 Zosyn 3.375 gm In Dextrose 5% 50 / 50 in Water 50 ml @ 100 mls/hr IV Q8H [facility] Rx#:[id number] Output: Void Amount 475 / 475 600 / 600 200 / 200 Exam: Constitutional; Afebrile, cooperative, alert, not in distress. Eyes- No icterus, , No periorbital swelling Ears- Ext ear normal, hearing normal to conversation. Neck- Midline trachea, supple Respiratory system: Air Entry equal on both sides, jarred basilar crackles, bronchial breath sounds jarred, no wheezing. CVS- Rate rhythm regular, S1,S2 heard, no gallop, no rub. Abdomen- Soft nontender abdomen, no organomegaly, no tenderness, no guarding or rigidity, ADOPTION AGENT- AOOx3, moving all extremities, no gross focal deficit noted. Medical - PN: Obj Da - Labs CBC & Chem 7: 02/21/17 03:40 02/21/17 03:40 Labs: Abnormal Lab Results 02/21/17 02/21/17 02/20/17 03:40 03:40 17:11 WBC RBC 3.36 L Hgb 10.8 L Hct 31.6 L Lymph % (Auto) Gran # Slope # (Auto) Carbon Dioxide 21 L Anion Gap BUN 30 H Creatinine 1.8 H Glucose 210 H Phosphorus 2.6 L Lactate Dehydrogenase 257 H NT-Pro-B Natriuret Pep Urine Glucose (UA) 150 A Urine Occult Blood 0.2 A Urine RBC 2 H 02/20/17 02/20/17 16:57 16:57 WBC 12.7 H RBC 3.91 L Hgb 12.5 L Hct 36.7 L Lymph % (Auto) 13.0 L Gran # 9.9 H Slope # (Auto) 1.0 H Carbon Dioxide 19 L Anion Gap 21.0 H BUN 32 H Creatinine 2.0 H Glucose 309 H Phosphorus Lactate Dehydrogenase NT-Pro-B Natriuret Pep 4952.0 H Urine Glucose (UA) Urine Occult Blood Urine RBC Meds: Medications Acetaminophen (Tylenol) 650 mg PO Q4-6HP PRN PRN Reason: PAIN/FEVER > 101 Albuterol/Ipratropium (Duoneb) 3 ml NEB Q4HRT [facility] Last Admin: 02/21/17 07:15 Dose: 3 ml Amlodipine Besylate (Norvasc) 5 mg PO DAILY [facility] Last Admin: 02/21/17 08:28 Dose: 5 mg Ascorbic Acid (Vitamin C) 1,000 mg PO BID [facility] Last Admin: 02/21/17 08:27 Dose: 1,000 mg Aspirin (Aspirin) 81 mg PO DAILY [facility] Last Admin: 02/21/17 08:28 Dose: 81 mg Atorvastatin Calcium (Lipitor) 40 mg PO HS [facility] Last Admin: 02/20/17 21:22 Dose: Not Given Dextrose (Dextrose 50%) 0 ml IV UD PRN PRN Reason: Hypoglycemia Diagnostic Test (Pha) (Accu-Chek) 1 each FS ACHS [facility] Last Admin: 02/21/17 07:30 Dose: 1 each Famotidine (Pepcid) 20 mg IV HS [facility] Last Admin: 02/20/17 21:11 Dose: 20 mg Glucose (Insta-Glucose) 15 gm PO PRN PRN PRN Reason: Hypoglycemia Heparin Sodium (Porcine) (Heparin) 5,000 unit SQ Q12 [facility] Last Admin: 02/21/17 08:27 Dose: 5,000 unit Hydromorphone HCl (Dilaudid) 0.5 mg IV Q2HP PRN PRN Reason: PAIN LEVEL > 6 Piperacillin Sod/Tazobactam (Sod 3.375 gm/ Dextrose) 50 mls @ 100 mls/hr IV Q8H [facility] Last Admin: 02/21/17 08:16 Dose: 100 mls/hr Vancomycin HCl 1,500 mg/ (Sodium Chloride) 500 mls @ 333.3 mls/hr IV Q24H [facility] Insulin Glargine (Lantus) 30 unit SQ HS [facility] Last Admin: 02/20/17 21:10 Dose: 30 unit Insulin Human Lispro (Humalog) 0 unit SQ ACHS [facility] PRN Reason: Protocol Last Admin: 02/21/17 08:28 Dose: 3 unit Naloxone HCl (Narcan) 0.1 mg IV Q2MIN PRN PRN Reason: Opiate Reversal Nitroglycerin (Nitrostat) 0.4 mg SL Q5M PRN PRN Reason: Chest Pain Ondansetron HCl (Zofran) 4 mg IV Q4-6HP PRN PRN Reason: Nausea And Vomiting Timolol Maleate 5 Mg 1 dose PO DAILY [facility] Potassium Chloride (Kdur) 10 meq PO QAMCC [facility] Last Admin: 02/21/17 08:27 Dose: 10 meq Sodium Chloride (Saline Flush) 10 ml IV Q8 [facility] Last Admin: 02/21/17 08:21 Dose: 10 ml Vancomycin HCl (Vancomycin Per Pharmacy) 1 order IV UD [facility] Vitamin D (Vitamin D3) 1,000 unit PO DAILY [facility] Medical - PN: A/P - Time Spent With Patient Total time spent is greater than 50% in coordination of care (as documented) at patient's floor/unit and/or counseling patient: - Narrative A/P Narrative: A/P Pneumonia: Given Pulm fibrosis/ Bronchiectasis, treat as health care associated , sputum cs, fungal sputum cx, blood cx, and fungal panel pending IV vanco and zosyn for now. No pulm consult available, consider CT chest in AM, plan to get swallow eval. Bronchiectasis/ Pulm Fibrosis: Etiology? aspiration? outpatient pulm follow up. No consult available CHF: lower extremity edema better, but crackles are present, will give one dose of IV lasix and see how he does. Chronic Resp failure: patient is hypoxic but I think his oxygen saturations runs chronically low, oxygen via nasal canula for now, consider bipap if resp staus worsens. CKD : follows with Dr Arita, CKD stable creat is a1.8 today DM uncontrolled glucose. resume lantus, start on sliding scale insulin and monitor glucose, hold oral home meds HTN: bp elevated on oral diuretic which will continue home meds, he is on timolol 5mg tid which I find unusual, CAD, s/p CABG: on statin asa, bb, no cp continue same and monitor Diet cardiac, diabetic DNR code status DVT hep sq and scd Medical - PN: Qual - VTE Deep Vein Thrombosis/Pulmonary Embolism Present on Admission: No
[2017-02-21] MEDS: VANCOMYCIN 1,500 MG in 0.9 % SODIUM CHLORIDE 500 ML IV SCH (09:25)
[2017-02-21] MEDS: TIMOLOL MALEATE 5 MG PO SCH (09:33)
[2017-02-21] MEDS: ACETAMINOPHEN 325 MG TABLET PO PRN ×2 (13:02→18:37)
[2017-02-21] MEDS: FAMOTIDINE/PF 20 MG/2 ML VIAL IV SCH (20:36)
[2017-02-21] MEDS: HYDROmorphone 2 MG/ML SYRINGE IV PRN (20:36)
[2017-02-21] MEDS: INSULIN GLARGINE, HUMAN 1 UNIT/0.01 ML SQ SCH (20:37)
[2017-02-21] MEDS: ATORVASTATIN 20 MG TABLET PO SCH (20:37)
[2017-02-22] MEDS: IPRATROPIUM/ALBUTEROL 3 ML AMPUL.NEB NEB SCH ×6 (02:45→23:11)
[2017-02-22] MEDS: ACETAMINOPHEN 325 MG TABLET PO PRN ×2 (04:22→07:00)
[2017-02-22] MEDS: PIPERACILLIN SODIUM/TAZOBACTAM 3.375 GM in DEXTROSE 5% IN WATER 50 ML IV SCH ×3 (05:53→22:12)
[2017-02-22] MEDS: HYDROmorphone 2 MG/ML SYRINGE IV PRN (05:53)
[2017-02-22 05:59] LABS: Basophils # (Auto) 0 K/mcL (0.0-0.3); Basophils % (Auto) 0.4 % (0.0-2.0); Eosinophils # (Auto) 0.2 K/mcL (0.0-0.7); Eosinophils % (Auto) 1.4 % (0.0-7.0); Granulocytes % (Auto) 76.5 % (38.0-78.0); Lymphocytes # (Auto) 1.3 K/mcL (1.5-4.8); Lymphocytes % (Auto) 12.1 % (15.5-49.0); Mean Cell Volume 95.1 fL (80.0-100.0); Mean Corpuscular HGB Conc 33.8 g/dL (31.0-36.0); Mean Corpuscular Hemoglobin 32.2 pg (26.0-34.0); Monocytes # (Auto) 1.1 K/mcL (0.1-0.9); Monocytes % (Auto) 9.6 % (1.0-12.0); Platelet Count 161 K/mcL (140-440); RBC 3.44 M/mcL (4.50-5.90); Red Cell Distribution Width 13.6 % (11.5-14.5)
[2017-02-22] MEDS: 0.9 % SODIUM CHLORIDE 10 ML SYRINGE IV SCH ×3 (06:03→21:14)
[2017-02-22 06:07] LABS: ALT/SGPT 13 U/l (0-40); Albumin 3.7 gm/dL (3.2-5.2); Albumin/Globulin Ratio 1.1 (1.0-2.3); Alkaline Phosphatase 66 U/L (39-117); Bilirubin,Direct 0.3 mg/dL (0.0-0.3); Blood Urea Nitrogen 34 mg/dl (8-23); Gamma Glutamyl Transpeptidase 29 U/L (8-61); Magnesium 1.5 mg/dL (1.6-2.5); Uric Acid 4.6 mg/dL (2.5-8.0)
[2017-02-22] MEDS: INSULIN LISPRO 1 UNIT/0.01 ML UNIT SQ SCH ×5 (07:06→23:18)
[2017-02-22] MEDS: POTASSIUM CHLORIDE 10 MEQ TABLET PO SCH (09:04)
[2017-02-22] MEDS: amLODIPine 5 MG TABLET PO SCH (09:04)
[2017-02-22] MEDS: ASPIRIN 81 MG TAB.CHEW PO SCH (09:04)
[2017-02-22] MEDS: VITAMIN D3 1,000 UNIT TABLET PO SCH (09:05)
[2017-02-22] MEDS: ASCORBIC ACID 500 MG TABLET PO SCH ×2 (09:05→20:11)
[2017-02-22] MEDS: HEPARIN 5,000 UNIT/ML VIAL SQ SCH ×2 (09:05→20:11)
[2017-02-22] MEDS: VANCOMYCIN 1,500 MG in 0.9 % SODIUM CHLORIDE 500 ML IV SCH (09:06)
[2017-02-22] MEDS: TIMOLOL MALEATE 5 MG PO SCH (09:06)
[2017-02-22] MEDS ORDERED: AZITHROMYCIN 250 MG TABLET PO ONE (09:08)
--- NOTE | 2017-02-22 09:14 | Cat Scan Report ---
CLINICAL INFORMATION: Pneumonia shortness breath and pulmonary fibrosis and coronary artery disease COMPARISON: CT on 10/24/16 TECHNIQUE: 2.5 mm axial slices were obtained from the lung apices through the bases without intravenous contrast. Sagittal, coronal and axial reformatted images were processed and reviewed at bone, lung and soft tissue windows. 7 mm axial MIP images were also reconstructed. FINDINGS: There are moderately severe groundglass alveolar infiltrates in both lungs. This is a mosaic pattern. There is underlying interstitial pulmonary fibrosis. The fibrosis is in a subpleural distribution, best seen laterally and posteriorly in the right mid and lower thorax. There is mild bronchiectasis posteriorly in the right lung base. Mild thickening of the intralobular septa is present in the regions of the groundglass consolidation. The consolidation has become worse since a prior chest CT done on 10/24/16. At that time the appearance had more of a fibrotic pattern rather than an acute inflammatory pattern. There are several indeterminate lymph nodes in the mediastinum. The largest is located lateral to the main pulmonary artery and the left side of the mediastinum and measures 1.8 cm. That same lymph node measured 1.4 cm in greatest dimension on 10/24/16. There are other lymph nodes in the pretracheal retrocaval space which is enlarged to couple millimeter. The heart size is within normal limits. There are dense calcifications in the coronary arteries and there has been prior coronary artery bypass surgery. There are multiple small stones in the lumen of the gallbladder. Patient also has a few nonobstructing kidney stones bilaterally. The largest stone is in the right kidney and measures 4 mm. IMPRESSION: Moderate generalized groundglass alveolar infiltrates in both lungs, superimposed upon underlying pulmonary fibrosis. This is a nonspecific pattern. It may be the acute inflammatory phase of idiopathic pulmonary fibrosis. Cardiogenic pulmonary edema is possible but less likely. Bacterial alveolitis including pneumocystis pneumonia may have a similar pattern. Hypersensitivity pneumonitis, pulmonary hemorrhage and bronchiolitis obliterans organizing pneumonia (BOOP) are also in the differential. Interpreted and Authenticated by: Clemente Mao 02/22/17
[2017-02-22] MEDS ORDERED: 0.9 % SODIUM CHLORIDE 250 ML IV ONE (09:30)
[2017-02-22] MEDS: predniSONE 20 MG TABLET PO SCH (10:38)
--- NOTE | 2017-02-22 10:44 | Internal Med Progress Note ---
Medical - PN: Subj Patient information: Note initiated : 02/22/17 at 10:41 am Service Date, if different from initiated Date: [] Patient: Theodore Peterson 81 y/o M admitted on 02/20/17 for sob, coughing up blood. Chief Complaint: [] Interval history: Mr. Peterson is a 81 year old male with extensive medical history, CAD, s/p CABG, s /p pacemaker, CHF, CKD, DM, bronchiatesis, pulmonary fibrosis, presents to the ER with complaints of cough x 1 day associated with weakness, increased shortness of breath. Cough is yellowish in color, but he has had two episodes of hemoptysis today. The patient is progressively getting worse and therefore decided to come to the ER . He has poor functional status at baseline, last admission 6 months ago in july, for chf/ pna, since then he has not completely recovered. He has been followed up by his high school librarian, global chief creative officer as well as PCP. he has undergone a CT chest which shows diffuse infiltrates/ broncheatasis, / fibrosis in the lungs. Secondary to ASpiration? The patient sleeps 5-6 hrs during the day, is supposed to be on oxygen but does not use if often, he notes he is short of breath even while walking from the bed to the bathroom, he sleeps on his side, and admits to have lower extremity edema, he does not have orthopnea or PND, and not sure if the edema has worsened significantly. The patient apparently was at his near baseline status till yesterday. In the ER he was noted to be hypoxic on arrival, which corrected promptly to oxygen. His labs showed elevated wbc count, his has CKD with creat of 2.0, his glucose is elevated, his CXR shows worsening alveolar infiltrates. The patient was tachepnic and therefore admitted to the hospital for further management, in PCU status. Patient is DNR, ok with bipap He and family explained that that his overall prognosis is poor given poor functional status, and bronchiatesis/ pulm fibrosis. Feb 21 patient seen examined, no acute overnight issues, patient this am feels more short of breath than yesterday, Chest xray shows improving infiltrates, he has some low grade temp, but his wbc count is normalized. he remains on vanco and zosyn Plan was to get swallow eval and CT chest today, but given his worsneing sob, hold off on same. Give one dose of lasix 40 and see how he responds, if needed will place him on bipap Pulmonary consult not available this week. Feb 22 patient seen examined, still is febrile, shortness of breath persists, he is breathing around 26-34 / min, in shallow breaths, speaks few works, His CT was done today, shows significant Changes in the parenchyma, inflammatory , infectious, varied differential given. We do not have pulm available, the patient refused to go to [place] for pulmonary evaluation. the patient microbiology is neg, his Renal function worsened creatr is 2.3 today, will give 250cc fluids. Add azithromycin to his regime, Add prednisone to his regime, given inflammatory component to this CT may respond and he is already on broad antibiotic coverage flu test ordered. WIll place patient on bipap today, to help with work of breathing to prevent him from decompensating. Pertinent ROS: Denies headache, dizziness Denies chest pain, palpitations cough improved, sob persists. Denies abdominal pain, nausea or vomiting. Additional PMFSH (Level 3 Only): Medical History (Last Reviewed 01/31/17 @ 14:58 by Minal Arita MD) CHF exacerbation (Acute) CAD (coronary artery disease) (Chronic) Type 2 diabetes mellitus (Chronic) Complete heart block (Chronic) Pacemaker (Chronic) HTN (hypertension) (Chronic) Hyperlipidemia (Chronic) Aortic stenosis, mild (Chronic) Cardiomyopathy, ischemic (Chronic) History of tobacco abuse (Resolved) Renal failure (Acute) Community acquired pneumonia (Acute) - Constitutional Vitals: Vital Signs Temp Pulse Resp BP Pulse Ox 101.2 F H 90 22 162/79 97 02/22/17 07:00 02/22/17 10:28 02/22/17 10:28 02/22/17 06:58 02/22/17 09:50 Period Temp Pulse Resp BP Sys/Sahni Pulse Ox Last 24 Hr 99.2 F-101.5 F 85-113 18-46 128-180/59-79 91-100 Intake and Output 02/21/17 02/22/17 02/22/17 21:59 05:59 13:59 Intake Total 500 / 500 200 / 200 200 / 200 Output Total 900 / 900 200 / 200 100 / 100 Balance -400 / -400 0 / 0 100 / 100 Weight 162 lb 4 oz Intake & Output: Intake & Output 02/21/17 02/22/17 02/22/17 21:59 05:59 13:59 Intake Total 500 / 500 200 / 200 200 / 200 Output Total 900 / 900 200 / 200 100 / 100 Balance -400 / -400 0 / 0 100 / 100 Weight 162 lb 4 oz Intake: IV 50 / 50 50 / 50 Zosyn 3.375 gm In Dextrose 5% 50 / 50 50 / 50 in Water 50 ml @ 100 mls/hr IV Q8H [facility] Rx#:[id number] Oral 450 / 450 150 / 150 200 / 200 Output: Void Amount 900 / 900 200 / 200 100 / 100 Other: Meal Dinner Percent of Meal Consumed 50% # Voids 2 1 Exam: Constitutional; Afebrile, cooperative, alert, not in distress. Eyes- No icterus, , No periorbital swelling Ears- Ext ear normal, hearing normal to conversation. Neck- Midline trachea, supple Respiratory system: Air Entry equal on both sides, jarred bronchial bs, jarred basilar crackles slightly worse today than yesterday. CVS- Rate rhythm regular, S1,S2 heard, no gallop, no rub. Abdomen- Soft nontender abdomen, no organomegaly, no tenderness, no guarding or rigidity, [employer]OR WORK[employer]- AOOx3, moving all extremities, no gross focal deficit noted. Medical - PN: Obj Da - Labs CBC & Chem 7: 02/22/17 03:50 02/22/17 03:50 Labs: Abnormal Lab Results 02/22/17 02/22/17 02/21/17 03:50 03:50 03:40 WBC RBC 3.44 L Hgb 11.1 L Hct 32.7 L Lymph % (Auto) 12.1 L Gran # 8.4 H Lymph # (Auto) 1.3 L Avery # (Auto) 1.1 H Carbon Dioxide 20 L 21 L Anion Gap 19.0 H BUN 34 H 30 H Creatinine 2.3 H 1.8 H Glucose 224 H 210 H Phosphorus 2.6 L Magnesium 1.5 L Lactate Dehydrogenase 253 H 257 H NT-Pro-B Natriuret Pep Urine Glucose (UA) Urine Occult Blood Urine RBC 02/21/17 02/20/17 02/20/17 03:40 17:11 16:57 WBC RBC 3.36 L Hgb 10.8 L Hct 31.6 L Lymph % (Auto) Gran # Lymph # (Auto) Avery # (Auto) Carbon Dioxide 19 L Anion Gap 21.0 H BUN 32 H Creatinine 2.0 H Glucose 309 H Phosphorus Magnesium Lactate Dehydrogenase NT-Pro-B Natriuret Pep 4952.0 H Urine Glucose (UA) 150 A Urine Occult Blood 0.2 A Urine RBC 2 H 02/20/17 16:57 WBC 12.7 H RBC 3.91 L Hgb 12.5 L Hct 36.7 L Lymph % (Auto) 13.0 L Gran # 9.9 H Lymph # (Auto) Avery # (Auto) 1.0 H Carbon Dioxide Anion Gap BUN Creatinine Glucose Phosphorus Magnesium Lactate Dehydrogenase NT-Pro-B Natriuret Pep Urine Glucose (UA) Urine Occult Blood Urine RBC Meds: Medications Acetaminophen (Tylenol) 650 mg PO Q4-6HP PRN PRN Reason: PAIN/FEVER > 101 Last Admin: 02/22/17 07:00 Dose: 650 mg Albuterol/Ipratropium (Duoneb) 3 ml NEB Q4HRT [facility] Last Admin: 02/22/17 10:28 Dose: 3 ml Amlodipine Besylate (Norvasc) 5 mg PO DAILY [facility] Last Admin: 02/22/17 09:04 Dose: 5 mg Ascorbic Acid (Vitamin C) 1,000 mg PO BID [facility] Last Admin: 02/22/17 09:05 Dose: 1,000 mg Aspirin (Aspirin) 81 mg PO DAILY [facility] Last Admin: 02/22/17 09:04 Dose: 81 mg Atorvastatin Calcium (Lipitor) 40 mg PO HS [facility] Last Admin: 02/21/17 20:37 Dose: 40 mg Azithromycin (Zithromax) 250 mg PO DAILY [facility] Stop: 02/26/17 09:01 Dextrose (Dextrose 50%) 0 ml IV UD PRN PRN Reason: Hypoglycemia Diagnostic Test (Pha) (Accu-Chek) 1 each FS ACHS [facility] Last Admin: 02/22/17 07:01 Dose: 1 each Famotidine (Pepcid) 20 mg IV HS [facility] Last Admin: 02/21/17 20:36 Dose: 20 mg Glucose (Insta-Glucose) 15 gm PO PRN PRN PRN Reason: Hypoglycemia Heparin Sodium (Porcine) (Heparin) 5,000 unit SQ Q12 [facility] Last Admin: 02/22/17 09:05 Dose: 5,000 unit Hydromorphone HCl (Dilaudid) 0.5 mg IV Q2HP PRN PRN Reason: PAIN LEVEL > 6 Last Admin: 02/22/17 05:53 Dose: 0.5 mg Piperacillin Sod/Tazobactam (Sod 3.375 gm/ Dextrose) 50 mls @ 100 mls/hr IV Q8H [facility] Last Admin: 02/22/17 05:53 Dose: 100 mls/hr Vancomycin HCl 1,500 mg/ (Sodium Chloride) 500 mls @ 333.3 mls/hr IV Q24H [facility] Last Admin: 02/22/17 09:06 Dose: 333 mls/hr Insulin Glargine (Lantus) 30 unit SQ HS [facility] Last Admin: 02/21/17 20:37 Dose: 30 unit Insulin Human Lispro (Humalog) 0 unit SQ ACHS [facility] PRN Reason: Protocol Last Admin: 02/22/17 07:06 Dose: 3 unit Naloxone HCl (Narcan) 0.1 mg IV Q2MIN PRN PRN Reason: Opiate Reversal Nitroglycerin (Nitrostat) 0.4 mg SL Q5M PRN PRN Reason: Chest Pain Ondansetron HCl (Zofran) 4 mg IV Q4-6HP PRN PRN Reason: Nausea And Vomiting Timolol Maleate 5 Mg 1 dose PO DAILY [facility] Last Admin: 02/22/17 09:06 Dose: Not Given Potassium Chloride (Kdur) 10 meq PO [facility] Last Admin: 02/22/17 09:04 Dose: 10 meq Prednisone (Prednisone) 60 mg PO [facility] Stop: 02/27/17 09:44 Last Admin: 02/22/17 10:38 Dose: 60 mg Sodium Chloride (Saline Flush) 10 ml IV Q8 [facility] Last Admin: 02/22/17 06:03 Dose: 10 ml Vancomycin HCl (Vancomycin Per Pharmacy) 1 order IV [facility] [place] D (Vitamin D3) 1,000 unit PO DAILY [facility] Last Admin: 02/22/17 09:05 Dose: 1,000 unit Medical - PN: A/P - Time Spent With Patient Total time spent is greater than 50% in coordination of care (as documented) at patient's floor/unit and/or counseling patient: - Narrative A/P Narrative: A/P Pneumonia: Given Pulm fibrosis/ Bronchiectasis, treat as health care associated , sputum cs, fungal sputum cx, blood cx, and fungal panel pending IV vanco and zosyn for now., add zithromax to cover for atypicals, No pulm consult available , CT chest reviewed, inflammatory changes possible, add prednisone to his regime. Send workup FABIOLA, ANCA, c3,c4, esr and crp RA, CCP, myositis for autoimmue etiology Bronchiectasis/ Pulm Fibrosis: Etiology? aspiration? outpatient pulm follow up. No consult available, pt refused xfer to [facility] center. CHF: lower extremity edema better, but clinjically patient does not ahve chf, hold off on lasix. Chronic Resp failure: patient is hypoxic but I think his oxygen saturations runs chronically low, oxygen via nasal canula for now, start on bipap to help with work of breathing. CKD : follows with Dr Arita, CKD stable creat is 2.3, give 250cc saline, monitor. DM uncontrolled glucose. on lantus 30, increase sliding scale from low to med protocol. HTN: bp elevated on oral diuretic which will continue home meds, he is on timolol 5mg tid which I find unusual, CAD, s/p CABG: on statin asa, bb, no cp continue same and monitor Diet cardiac, diabetic DNR code status DVT hep sq and scd Medical - PN: Qual - VTE Deep Vein Thrombosis/Pulmonary Embolism Present on Admission: No
[2017-02-22 12:00] LABS: C-Reactive Protein 24.5 mg/dl (0.0-0.8); Complement C3 121.6 mg/dl (90-180); Creatine Kinase 175 IU/L (24-195); Rheumatoid Factor 18 IU/ml (0-14)
[2017-02-22] MEDS: OSELTAMIVIR PHOSPHATE 75 MG CAPSULE PO SCH (13:00)
[2017-02-22] MEDS ORDERED: LORazepam 1 MG TABLET PO PRN (15:12)
[2017-02-22] MEDS: LORazepam 2 MG/ML VIAL IV PRN (15:35)
[2017-02-22] MEDS: HYDROcodone/APAP 5/325MG TABLET PO PRN (18:47)
[2017-02-22] MEDS: ATORVASTATIN 20 MG TABLET PO SCH (20:11)
[2017-02-22] MEDS: FAMOTIDINE/PF 20 MG/2 ML VIAL IV SCH (20:11)
[2017-02-22] MEDS: INSULIN GLARGINE, HUMAN 1 UNIT/0.01 ML SQ SCH (20:11)
[2017-02-23] MEDS: HYDROcodone/APAP 5/325MG TABLET PO PRN (01:02)
[2017-02-23] MEDS: INSULIN LISPRO 1 UNIT/0.01 ML UNIT SQ SCH ×5 (01:39→22:37)
[2017-02-23] MEDS: IPRATROPIUM/ALBUTEROL 3 ML AMPUL.NEB NEB SCH ×6 (02:45→23:21)
[2017-02-23 05:08] LABS: Basophils # (Auto) 0 K/mcL (0.0-0.3); Basophils % (Auto) 0.1 % (0.0-2.0); Eosinophils # (Auto) 0.1 K/mcL (0.0-0.7); Eosinophils % (Auto) 0.5 % (0.0-7.0); Granulocytes % (Auto) 87.6 % (38.0-78.0); Lymphocytes # (Auto) 0.6 K/mcL (1.5-4.8); Lymphocytes % (Auto) 4.3 % (15.5-49.0); Mean Cell Volume 94.9 fL (80.0-100.0); Mean Corpuscular HGB Conc 33.8 g/dL (31.0-36.0); Mean Corpuscular Hemoglobin 32.1 pg (26.0-34.0); Monocytes % (Auto) 7.5 % (1.0-12.0); Platelet Count 167 K/mcL (140-440); RBC 3.31 M/mcL (4.50-5.90); Red Cell Distribution Width 13.6 % (11.5-14.5)
[2017-02-23 05:11] LABS: ALT/SGPT 16 U/l (0-40); Albumin 3.6 gm/dL (3.2-5.2); Alkaline Phosphatase 74 U/L (39-117); Bilirubin,Direct 0.3 mg/dL (0.0-0.3); Blood Urea Nitrogen 37 mg/dl (8-23); Gamma Glutamyl Transpeptidase 38 U/L (8-61); Magnesium 1.7 mg/dL (1.6-2.5); Uric Acid 4.7 mg/dL (2.5-8.0)
[2017-02-23] MEDS: PIPERACILLIN SODIUM/TAZOBACTAM 3.375 GM in DEXTROSE 5% IN WATER 50 ML IV SCH ×3 (05:35→22:55)
[2017-02-23] MEDS: 0.9 % SODIUM CHLORIDE 10 ML SYRINGE IV SCH ×3 (05:35→23:12)
[2017-02-23] MEDS: VITAMIN D3 1,000 UNIT TABLET PO SCH (08:11)
[2017-02-23] MEDS: predniSONE 20 MG TABLET PO SCH (08:11)
[2017-02-23] MEDS: HEPARIN 5,000 UNIT/ML VIAL SQ SCH ×2 (08:11→22:38)
[2017-02-23] MEDS: amLODIPine 5 MG TABLET PO SCH (08:11)
[2017-02-23] MEDS: AZITHROMYCIN 250 MG TABLET PO SCH (08:11)
[2017-02-23] MEDS: ASCORBIC ACID 500 MG TABLET PO SCH ×2 (08:11→22:38)
[2017-02-23] MEDS: POTASSIUM CHLORIDE 10 MEQ TABLET PO SCH (08:11)
[2017-02-23] MEDS: ASPIRIN 81 MG TAB.CHEW PO SCH (08:11)
[2017-02-23] MEDS: OSELTAMIVIR PHOSPHATE 75 MG CAPSULE PO SCH (08:11)
[2017-02-23] MEDS: VANCOMYCIN 1,500 MG in 0.9 % SODIUM CHLORIDE 500 ML IV SCH (08:39)
[2017-02-23] MEDS: LORazepam 2 MG/ML VIAL IV PRN ×5 (10:10→21:20)
[2017-02-23] MEDS: TIMOLOL MALEATE 5 MG PO SCH (10:10)
--- NOTE | 2017-02-23 15:51 | Internal Med Progress Note ---
Medical - PN: Subj Patient information: Note initiated : 02/23/17 at 3:44 pm Service Date, if different from initiated Date: [] Patient: Theodore Peterson 81 y/o M admitted on 02/20/17 for sob, coughing up blood. Chief Complaint: follow-up respiratory failure Interval history: Mr. Peterson is a 81 year old male with extensive medical history, CAD, s/p CABG, s /p pacemaker, CHF, CKD, DM, bronchiatesis, pulmonary fibrosis, presents to the ER with complaints of cough x 1 day associated with weakness, increased shortness of breath. Cough is yellowish in color, but he has had two episodes of hemoptysis today. The patient is progressively getting worse and therefore decided to come to the ER. He has poor functional status at baseline, last admission 6 months ago in July, for chf/ pna, since then he has not completely recovered. He has been followed up by his power lineman, water reuse program manager as well as PCP. he has undergone a CT chest which shows diffuse infiltrates/ broncheatasis, / fibrosis in the lungs. Secondary to aspiration? The patient sleeps 5-6 hrs during the day, is supposed to be on oxygen but does not use if often, he notes he is short of breath even while walking from the bed to the bathroom, he sleeps on his side, and admits to have lower extremity edema, he does not have orthopnea or PND, and not sure if the edema has worsened significantly. The patient apparently was at his near baseline status till yesterday. In the ER he was noted to be hypoxic on arrival, which corrected promptly to oxygen. His labs showed elevated wbc count, his has CKD with creat of 2.0, his glucose is elevated, his CXR shows worsening alveolar infiltrates. The patient was tachypneic and therefore admitted to the hospital for further management, in PCU status. Patient is DNR, ok with bipap He and family explained that that his overall prognosis is poor given poor functional status, and bronchiectasis/ pulm fibrosis. Feb 21 patient seen examined, no acute overnight issues, patient this am feels more short of breath than yesterday, Chest xray shows improving infiltrates, he has some low grade temp, but his wbc count is normalized. he remains on vanco and zosyn Plan was to get swallow eval and CT chest today, but given his worsening sob, hold off on same. Give one dose of Lasix 40 and see how he responds, if needed will place him on bipap Pulmonary consult not available this week. Feb 22 patient seen examined, still is febrile, shortness of breath persists, he is breathing around 26-34 / min, in shallow breaths, speaks few works, His CT was done today, shows significant changes in the parenchyma, inflammatory , infectious, varied differential given. We do not have pulm available, the patient refused to go to [place] for pulmonary evaluation. The patient microbiology is neg, his Renal function worsened Cr is 2.3 today, will give 250cc fluids. Add azithromycin to his regime, Add prednisone to his regime, given inflammatory component to this CT may respond and he is already on broad antibiotic coverage, flu test ordered. Will place patient on bipap today, to help with work of breathing to prevent him from decompensating. Feb 23 Initially tolerated BiPAP yesterday, then could not stand to have the mask on. Continued to have significant work of breathing overnight. Discussed it with him in mid evening, wanted to continue on oxygen mask. High flow oxygen is not available at this facility. Overnight, continued to have increased work of breathing, steadfastly did not want to use BiPAP. Tachypnea, was maintaining sats on 8 L. This morning, requiring increased FiO2 to maintain saturations. Requiring lorazepam, but now able to tolerate the BiPAP mask. Morphine nebs ordered to help with air hunger. Discussed on multiple occasions with the patient overnight that he is seriously ill, may not survive this episode. He reiterated he would not want to be intubated or resuscitated. That point he did not want to have BiPAP either, though he has now changed his mind on BiPAP. Updated his family on the situation this morning. - Constitutional Vitals: Vital Signs Temp Pulse Resp BP Pulse Ox 99.3 F H 125 H 43 H 150/82 93 02/23/17 07:45 02/23/17 15:35 02/23/17 15:35 02/23/17 14:00 02/23/17 14:00 Period Temp Pulse Resp BP Sys/Sahni Pulse Ox Last 24 Hr 98.9 F-100.1 F 66-130 19-50 128-173/67-142 78-99 Intake and Output 02/23/17 02/23/17 02/23/17 05:59 13:59 21:59 Intake Total 670 / 670 890 / 890 50 / 50 Output Total 150 / 150 400 / 400 Balance 520 / 520 490 / 490 50 / 50 Intake & Output: Intake & Output 02/23/17 02/23/17 02/23/17 05:59 13:59 21:59 Intake Total 670 / 670 890 / 890 50 / 50 Output Total 150 / 150 400 / 400 Balance 520 / 520 490 / 490 50 / 50 Intake: IV 50 / 50 550 / 550 50 / 50 Zosyn 3.375 gm In Dextrose 5% 50 / 50 50 / 50 50 / 50 in Water 50 ml @ 100 mls/hr IV Q8H [facility] Rx#:[id number] Vancomycin 1,500 mg In Sodium 500 / 500 Chloride 0.9% 500 ml @ 333.3 mls/hr IV Q24H [facility] Rx#: [id number] Oral 340 / 340 GI Tube Flush 620 / 620 Output: Urine Catheter Amount 150 / 150 Void Amount 150 / 150 250 / 250 Other: Meal Breakfast Percent of Meal Consumed 75% # Voids 1 Exam: General: In moderate distress, ill-appearing Chest: Bibasilar faint or rales, no wheezes, scattered rhonchi, respirations are moderately to severely labored Cardiovascular: Regular, tachycardia. Abdomen: Soft, nontender Extremities: Warm, no edema Neuro: Alert, oriented to person, disoriented earlier this morning, now oriented to place and situation. Medical - PN: Obj Da - Labs CBC & Chem 7: 02/23/17 03:55 02/23/17 03:55 Labs: Abnormal Lab Results 02/23/17 02/23/17 02/23/17 07:53 03:55 03:55 WBC 13.9 H RBC 3.31 L Hgb 10.6 L Hct 31.5 L Gran % 87.6 H Lymph % (Auto) 4.3 L Gran # 12.2 H Lymph # (Auto) 0.6 L [place] # (Auto) 1.0 H ESR Carbon Dioxide 20 L Anion Gap 17.0 H BUN 37 H Creatinine 2.5 H Glucose 279 H Phosphorus Magnesium Lactate Dehydrogenase 323 H C-Reactive Protein NT-Pro-B Natriuret Pep Urine Glucose (UA) Urine Occult Blood Urine RBC Vancomycin Trough 25.0 H* Rheumatoid Factor 02/22/17 02/22/17 02/22/17 11:00 11:00 11:00 WBC RBC Hgb Hct Gran % Lymph % (Auto) Gran # Lymph # (Auto) [place] # (Auto) ESR 87 H Carbon Dioxide Anion Gap BUN Creatinine Glucose Phosphorus Magnesium Lactate Dehydrogenase C-Reactive Protein 24.5 H NT-Pro-B Natriuret Pep Urine Glucose (UA) Urine Occult Blood Urine RBC Vancomycin Trough Rheumatoid Factor 18 H 02/22/17 02/22/17 02/21/17 03:50 03:50 03:40 WBC RBC 3.44 L Hgb 11.1 L Hct 32.7 L Gran % Lymph % (Auto) 12.1 L Gran # 8.4 H Lymph # (Auto) 1.3 L [place] # (Auto) 1.1 H ESR Carbon Dioxide 20 L 21 L Anion Gap 19.0 H BUN 34 H 30 H Creatinine 2.3 H 1.8 H Glucose 224 H 210 H Phosphorus 2.6 L Magnesium 1.5 L Lactate Dehydrogenase 253 H 257 H C-Reactive Protein NT-Pro-B Natriuret Pep Urine Glucose (UA) Urine Occult Blood Urine RBC Vancomycin Trough Rheumatoid Factor 02/21/17 02/20/17 02/20/17 03:40 17:11 16:57 WBC RBC 3.36 L Hgb 10.8 L Hct 31.6 L Gran % Lymph % (Auto) Gran # Lymph # (Auto) [place] # (Auto) ESR Carbon Dioxide 19 L Anion Gap 21.0 H BUN 32 H Creatinine 2.0 H Glucose 309 H Phosphorus Magnesium Lactate Dehydrogenase C-Reactive Protein NT-Pro-B Natriuret Pep 4952.0 H Urine Glucose (UA) 150 A Urine Occult Blood 0.2 A Urine RBC 2 H Vancomycin Trough Rheumatoid Factor 02/20/17 16:57 WBC 12.7 H RBC 3.91 L Hgb 12.5 L Hct 36.7 L Gran % Lymph % (Auto) 13.0 L Gran # 9.9 H Lymph # (Auto) [place] # (Auto) 1.0 H ESR Carbon Dioxide Anion Gap BUN Creatinine Glucose Phosphorus Magnesium Lactate Dehydrogenase C-Reactive Protein NT-Pro-B Natriuret Pep Urine Glucose (UA) Urine Occult Blood Urine RBC Vancomycin Trough Rheumatoid Factor Meds: Medications Acetaminophen (Tylenol) 650 mg PO Q4-6HP PRN PRN Reason: PAIN/FEVER > 101 Last Admin: 02/22/17 07:00 Dose: 650 mg Hydrocodone Bitart/Acetaminophen ([place] 5/325mg) 1 tab PO Q6HP PRN PRN Reason: PAIN LEVEL 3-6 Last Admin: 02/23/17 01:02 Dose: 1 tab Albuterol/Ipratropium (Duoneb) 3 ml NEB Q4HRT [facility] Last Admin: 02/23/17 15:34 Dose: 3 ml Amlodipine Besylate (Norvasc) 5 mg PO DAILY [facility] Last Admin: 02/23/17 08:11 Dose: 5 mg Ascorbic Acid (Vitamin C) 1,000 mg PO BID [facility] Last Admin: 02/23/17 08:11 Dose: 1,000 mg Aspirin (Aspirin) 81 mg PO DAILY [facility] Last Admin: 02/23/17 08:11 Dose: 81 mg Atorvastatin Calcium (Lipitor) 40 mg PO HS [facility] Last Admin: 02/22/17 20:11 Dose: 40 mg Azithromycin (Zithromax) 250 mg PO DAILY [facility] Stop: 02/26/17 09:01 Last Admin: 02/23/17 08:11 Dose: 250 mg Dextrose (Dextrose 50%) 0 ml IV UD PRN PRN Reason: Hypoglycemia Diagnostic Test (Pha) (Accu-Chek) 1 each FS ACHS [facility] Last Admin: 02/23/17 13:48 Dose: Not Given Famotidine (Pepcid) 20 mg IV HS [facility] Last Admin: 02/22/17 20:11 Dose: 20 mg Glucose (Insta-Glucose) 15 gm PO PRN PRN PRN Reason: Hypoglycemia Heparin Sodium (Porcine) (Heparin) 5,000 unit SQ Q12 [facility] Last Admin: 02/23/17 08:11 Dose: 5,000 unit Hydromorphone HCl (Dilaudid) 0.5 mg IV Q2HP PRN PRN Reason: PAIN LEVEL > 6 Last Admin: 02/22/17 05:53 Dose: 0.5 mg Piperacillin Sod/Tazobactam (Sod 3.375 gm/ Dextrose) 50 mls @ 100 mls/hr IV Q8H [facility] Last Infusion: 02/23/17 14:50 Dose: Infused Insulin Glargine (Lantus) 30 unit SQ HS [facility] Last Admin: 02/22/17 20:11 Dose: 30 unit Insulin Human Lispro (Humalog) 0 unit SQ ACHS [facility] PRN Reason: Protocol Last Admin: 02/23/17 13:49 Dose: Not Given Lorazepam (Ativan) 1 mg PO Q4HP PRN PRN Reason: ANXIETY/SEDATION Last Admin: 02/22/17 20:11 Dose: 1 mg Lorazepam (Ativan) 1 mg IV Q2HP PRN PRN Reason: ANXIETY/SEDATION Morphine Sulfate (Morphine) 10 mg NEB Q4HP PRN PRN Reason: Shortness Of Breath Last Admin: 02/23/17 10:11 Dose: 10 mg Naloxone HCl (Narcan) 0.1 mg IV Q2MIN PRN PRN Reason: Opiate Reversal Nitroglycerin (Nitrostat) 0.4 mg SL Q5M PRN PRN Reason: Chest Pain Ondansetron HCl (Zofran) 4 mg IV Q4-6HP PRN PRN Reason: Nausea And Vomiting Oseltamivir Phosphate (Tamiflu) 75 mg PO DAILY [facility] Last Admin: 02/23/17 08:11 Dose: 75 mg Timolol Maleate 5 Mg 1 dose PO DAILY [facility] Last Admin: 02/23/17 10:10 Dose: Not Given Potassium Chloride (Kdur) 10 meq PO [facility] Last Admin: 02/23/17 08:11 Dose: 10 meq Prednisone (Prednisone) 60 mg PO [facility] Stop: 02/27/17 09:44 Last Admin: 02/23/17 08:11 Dose: 60 mg Sodium Chloride (Saline Flush) 10 ml IV Q8 [facility] Last Admin: 02/23/17 14:48 Dose: 10 ml Vancomycin HCl (Vancomycin Per Pharmacy) 1 order IV [facility] Vitamin D (Vitamin D3) 1,000 unit PO DAILY [facility] Last Admin: 02/23/17 08:11 Dose: 1,000 unit Medical - PN: A/P - Time Spent With Patient Total time spent is greater than 50% in coordination of care (as documented) at patient's floor/unit and/or counseling patient: Greater than 35 minutes (1) Pulmonary fibrosis Status: Acute Current Visit: Yes (2) Acute and chronic respiratory failure with hypoxia Status: Acute Current Visit: Yes - Narrative A/P Narrative: A/P Pneumonia: Given Pulm fibrosis/ Bronchiectasis, treat as health care associated , sputum cs and fungal sputum cx not obtainable as not producing sputum; blood cx, and fungal panel pending IV vanco and zosyn, zithromax added 02/22 to cover for atypicals, as was oseltamivir. No pulm consult available, CT chest reviewed, inflammatory changes possible, add prednisone to his regime. Send workup FABIOLA, ANCA, c3,c4, esr and crp RA, CCP, myositis for autoimmune etiology Bronchiectasis/ Pulm Fibrosis: Etiology? aspiration? outpatient pulm follow up. No consult available, pt refused xfer to higher center. Status is critical and tenuous. Prognosis is guarded. CHF: lower extremity edema better, but clinically patient does not have chf, hold off on lasix. Chronic Resp failure: patient is hypoxic but I think his oxygen saturations runs chronically low, oxygen via nasal canula for now, start on bipap to help with work of breathing. CKD : follows with Dr Arita, CKD stable creat is 2.3, got 250 mL saline 02/22, monitor. DM uncontrolled glucose. on lantus 30, increase sliding scale from low to med protocol. HTN: bp elevated on oral diuretic which will continue home meds, he is on timolol 5mg tid which I find unusual CAD, s/p CABG: on statin asa, bb, no cp continue same and monitor Diet cardiac, diabetic DNR code status DVT hep sq and scd Medical - PN: Qual - VTE Deep Vein Thrombosis/Pulmonary Embolism Present on Admission: No
[2017-02-23] MEDS: HYDROmorphone 2 MG/ML SYRINGE IV PRN (21:49)
[2017-02-23] MEDS: INSULIN GLARGINE, HUMAN 1 UNIT/0.01 ML SQ SCH (22:37)
[2017-02-23] MEDS: ATORVASTATIN 20 MG TABLET PO SCH (22:38)
[2017-02-23] MEDS: FAMOTIDINE/PF 20 MG/2 ML VIAL IV SCH (22:38)
[2017-02-24] MEDS: INSULIN LISPRO 1 UNIT/0.01 ML UNIT SQ SCH ×3 (00:29→11:47)
[2017-02-24] MEDS: IPRATROPIUM/ALBUTEROL 3 ML AMPUL.NEB NEB SCH ×3 (03:27→11:15)
[2017-02-24] MEDS: PIPERACILLIN SODIUM/TAZOBACTAM 3.375 GM in DEXTROSE 5% IN WATER 50 ML IV SCH ×2 (05:14→14:37)
[2017-02-24 05:16] LABS: Basophils # (Auto) 0 K/mcL (0.0-0.3); Basophils % (Auto) 0 % (0.0-2.0); Eosinophils # (Auto) 0.1 K/mcL (0.0-0.7); Eosinophils % (Auto) 0.6 % (0.0-7.0); Granulocytes % (Auto) 84.8 % (38.0-78.0); Lymphocytes # (Auto) 0.8 K/mcL (1.5-4.8); Lymphocytes % (Auto) 5.9 % (15.5-49.0); Mean Cell Volume 94.4 fL (80.0-100.0); Mean Corpuscular HGB Conc 34.2 g/dL (31.0-36.0); Mean Corpuscular Hemoglobin 32.2 pg (26.0-34.0); Monocytes # (Auto) 1.2 K/mcL (0.1-0.9); Monocytes % (Auto) 8.7 % (1.0-12.0); Platelet Count 184 K/mcL (140-440); RBC 3.17 M/mcL (4.50-5.90)
[2017-02-24 05:34] LABS: ALT/SGPT 16 U/l (0-40); Albumin 3.7 gm/dL (3.2-5.2); Alkaline Phosphatase 78 U/L (39-117); Bilirubin,Direct 0.3 mg/dL (0.0-0.3); Blood Urea Nitrogen 56 mg/dl (8-23); Gamma Glutamyl Transpeptidase 37 U/L (8-61); Uric Acid 6.3 mg/dL (2.5-8.0)
[2017-02-24] MEDS: 0.9 % SODIUM CHLORIDE 10 ML SYRINGE IV SCH ×4 (06:05→14:15)
[2017-02-24] MEDS: LORazepam 2 MG/ML VIAL IV PRN ×3 (06:50→11:51)
[2017-02-24] MEDS: HYDROmorphone 2 MG/ML SYRINGE IV PRN (06:57)
[2017-02-24] MEDS ORDERED: 0.9 % SODIUM CHLORIDE 1,000 ML IV SCH ×2 (08:15→14:29)
[2017-02-24] MEDS: predniSONE 20 MG TABLET PO SCH (08:52)
[2017-02-24] MEDS: POTASSIUM CHLORIDE 10 MEQ TABLET PO SCH (08:52)
--- NOTE | 2017-02-24 08:58 | XRay Report ---
HISTORY: Reason for Exam:Worsening respiratory failure FINDINGS: Severe generalized alveolar opacities are present throughout both lungs. Right diaphragm is elevated. There are multiple air bronchograms. No pneumothorax or pleural effusion are present. The heart is partially obscured by the infiltrates but is not grossly enlarged. Pacemaker remains well-positioned. The infiltrates have become significantly worse since 02/21/17. Impression: Severe bilateral alveolar infiltrates which may be due to pulmonary edema, pneumonia, ARDS or a combination of the above. Interpreted and Authenticated by: Clemente Mao 02/24/17
[2017-02-24] MEDS ORDERED: ACETAMINOPHEN 1,000 MG/100 ML BOTTLE IV PRN (09:00)
[2017-02-24] MEDS ORDERED: methylPREDNISolone SOD SUCC 125 MG/2 ML VIAL IV SCH (09:04)
[2017-02-24] MEDS ORDERED: AZITHROMYCIN 500 MG in 0.9 % SODIUM CHLORIDE 250 ML IV SCH (09:15)
[2017-02-24] MEDS: ASPIRIN 81 MG TAB.CHEW PO SCH (09:21)
[2017-02-24] MEDS: amLODIPine 5 MG TABLET PO SCH (09:21)
[2017-02-24] MEDS: ASCORBIC ACID 500 MG TABLET PO SCH (10:03)
[2017-02-24] MEDS: OSELTAMIVIR PHOSPHATE 75 MG CAPSULE PO SCH (10:03)
[2017-02-24] MEDS: HEPARIN 5,000 UNIT/ML VIAL SQ SCH (10:03)
[2017-02-24] MEDS: VITAMIN D3 1,000 UNIT TABLET PO SCH (10:04)
[2017-02-24] MEDS: TIMOLOL MALEATE 5 MG PO SCH (10:45)
[2017-02-24] MEDS: AZITHROMYCIN 250 MG TABLET PO SCH (11:26)
[2017-02-24] MEDS ORDERED: LORazepam 2 MG/ML VIAL IV PRN (14:29)
--- NOTE | 2017-02-24 16:43 | Death Note ---
Discharge Sum: Prov - Provider Patient information: Note initiated : 02/24/17 at 4:41 pm Service Date, if different from initiated Date: [] Patient: Theodore Peterson 81 y/o M admitted on 02/20/17 for sob, coughing up blood. Chief Complaint: dyspnea Primary care physician: Christopher Rich Admitting clinician: Loyd Red Consults: 02/20/17 18:10 Consult to Physician [CONS] Stat Comment: Consulting Provider: Loyd Red Reason For Exam: Physician to Consult Pronouncing clinician: Bria Gonzales Discharge Sum: Diag - PCOD Cause of : Acute respiratory distress (ARDS) Discharge Sum: Summary - Date and Time Date of admission: 02/20/17 19:32 Date of : 02/24/17 Time of : 15:40 - Summary Details: Mr. Peterson is a 81 year old male with extensive medical history, CAD, s/p CABG, s /p pacemaker, CHF, CKD, DM, bronchiatesis, pulmonary fibrosis, presents to the ER with complaints of cough x 1 day associated with weakness, increased shortness of breath. Cough is yellowish in color, but he has had two episodes of hemoptysis today. The patient is progressively getting worse and therefore decided to come to the ER. He has poor functional status at baseline, last admission 6 months ago in July, for chf/ pna, since then he has not completely recovered. He has been followed up by his cardiology physician assistant, lead applier as well as PCP. he has undergone a CT chest which shows diffuse infiltrates/ broncheatasis, / fibrosis in the lungs. Secondary to aspiration? The patient sleeps 5-6 hrs during the day, is supposed to be on oxygen but does not use if often, he notes he is short of breath even while walking from the bed to the bathroom, he sleeps on his side, and admits to have lower extremity edema, he does not have orthopnea or PND, and not sure if the edema has worsened significantly. The patient apparently was at his near baseline status till yesterday. In the ER he was noted to be hypoxic on arrival, which corrected promptly to oxygen. His labs showed elevated wbc count, his has CKD with creat of 2.0, his glucose is elevated, his CXR shows worsening alveolar infiltrates. The patient was tachypneic and therefore admitted to the hospital for further management, in PCU status. Patient is DNR, ok with bipap He and family explained that that his overall prognosis is poor given poor functional status, and bronchiectasis/ pulm fibrosis. Feb 21 patient seen examined, no acute overnight issues, patient this am feels more short of breath than yesterday, Chest xray shows improving infiltrates, he has some low grade temp, but his wbc count is normalized. he remains on vanco and zosyn Plan was to get swallow eval and CT chest today, but given his worsening sob, hold off on same. Give one dose of Lasix 40 and see how he responds, if needed will place him on bipap Pulmonary consult not available this week. Feb 22 patient seen examined, still is febrile, shortness of breath persists, he is breathing around 26-34 / min, in shallow breaths, speaks few works, His CT was done today, shows significant changes in the parenchyma, inflammatory , infectious, varied differential given. We do not have pulm available, the patient refused to go to [place] for pulmonary evaluation. The patient microbiology is neg, his Renal function worsened Cr is 2.3 today, will give 250cc fluids. Add azithromycin to his regime, Add prednisone to his regime, given inflammatory component to this CT may respond and he is already on broad antibiotic coverage, flu test ordered. Will place patient on bipap today, to help with work of breathing to prevent him from decompensating. Feb 23 Initially tolerated BiPAP yesterday, then could not stand to have the mask on. Continued to have significant work of breathing overnight. Discussed it with him in mid evening, wanted to continue on oxygen mask. High flow oxygen is not available at this facility. Overnight, continued to have increased work of breathing, steadfastly did not want to use BiPAP. Tachypnea, was maintaining sats on 8 L. This morning, requiring increased FiO2 to maintain saturations. Requiring lorazepam, but now able to tolerate the BiPAP mask. Morphine nebs ordered to help with air hunger. Discussed on multiple occasions with the patient overnight that he is seriously ill, may not survive this episode. He reiterated he would not want to be intubated or resuscitated. That point he did not want to have BiPAP either, though he has now changed his mind on BiPAP. Updated his family on the situation this morning. Feb 24 The patient continued to be treated with vancomycin, Zosyn, azithromycin, Tamiflu and steroids. Throughout the afternoon and into the evening on Sunday, became more somnolent and encephalopathic. Oxygen requirements continued to increase. Overnight oxygen requirements increased, until he was 100% FiO2 this morning. Essentially BiPAP dependent. Repeat chest x-ray shows worsening alveolar infiltrates, air bronchograms, consistent with ARDS versus extensive pneumonia. Overnight urine output dropped off, developed oliguric renal failure , by approximately noon today had no urine output. Updated the family at bedside this morning, advise the look was grim. Also advised it would be reasonable at any time to purely focus on comfort. In early afternoon patient' s family chose to pursue comfort measures. He was changed to DNR/comfort measures only. Continued on morphine and Ativan for comfort, eventually BiPAP was stopped with rapid decline in respiratory status, development of hypoxia. Patient at 1540 hrs. Primary cause of : ARDS secondary to pneumonia of undetermined pathogen causing acute exacerbation of idiopathic pulmonary fibrosis. - Additional Data Confirmation of as documented by pronouncing clinician: no pulse, no respirations, no heart sounds, pupils fixed and dilated Family: at bedside Attending physician: Bria Gonzales Was code activated?: No Autopsy requested?: No marine insurance claim examiner notified?: No Organ bank notified?: Yes Hospice patient?: No
[2017-02-24] MEDS ORDERED: 0.9 % SODIUM CHLORIDE 10 ML SYRINGE IV SCH (22:00)
[2017-02-27 11:48] LABS: ANCA Screen NEGATIVE (NEGATIVE); Cyclic Citrullinated Peptide < 16 UNITS; Myeloperoxidase Antibody <1.0 AI (<1.0)
[2017-02-28 09:58] LABS: Histoplasma Mycelial AB <1:8 (<1:8)
[2017-03-01 10:19] LABS: DNA AB(DS) Crithidia, IFA NEGATIVE (NEGATIVE); Rhuematoid Factor 13 IU/mL (<14); SM Antibody <1.0 NEG AI (SEE COMMENT); Scl-70 <1.0 NEG AI (SEE COMMENT)
== END 2017-02-24 17:30 | disposition expired | DRG 189 ==
LOC: ED 16:29 → ICU 19:32
PROVIDERS: ADMIT Internal Medicine; ATTEND Internal Medicine